=== PATIENT | female | born 1945 | race Caucasian/White ===

== ENCOUNTER 2019-05-04 15:11 | Emergency (ER) | payer MEDICARE, BC ==
[2019-05-04 15:57] VITALS: BP 185/108
--- NOTE | 2019-05-04 16:33 | EDM.PDOC ---
ED HPI GENERAL MEDICAL PROBLEM - General Chief Complaint: Lower Extremity Injury/Pain Stated Complaint: BLOOD CLOT IN RIGHT LEG Time Seen by Provider: 05/04/19 16:31 Source of Information: Reports: Patient History Limitations: Reports: No Limitations - History of Present Illness INITIAL COMMENTS - FREE TEXT/NARRATIVE: 74-year-old female presents for concerns she may have a blood clot in the right leg. She is appreciated lumps in the right leg. She states that one of them is painful. Areas of redness without warmth. She always has swelling which is recent lymphedema to the right leg. She denies any chest pain or shortness of breath. She is on a baby aspirin daily. No history of any blood clots. She denies any recent trauma to the leg. Treatments POLYMER TESTER: Reports: Other (see below) Other Treatments POLYMER TESTER: none Right Leg Pain Score (Numeric/FACES): 2 - Related Data Allergies Allergy/AdvReac Type Severity Reaction Status Date / Time No Known Allergies Allergy Verified 12/06/16 14:19 Home Meds: Home Meds Hydrochlorothiazide 12.5 mg PO DAILY 12/06/16 [History] Levothyroxine 150 mcg PO DAILY 12/06/16 [History] Losartan Potassium 100 mg PO DAILY 12/06/16 [History] Propranolol [Inderal LA] 60 mg PO DAILY 12/06/16 [History] [place]-3/DHA/Epa/Fish Oil [[place]-3 Fish Oil 1,200 MG Sfgl] 1,200 mg PO DAILY [History] metFORMIN [Glucophage XR] 500 mg PO BID 05/04/19 [History] Past Medical History HEENT History: Reports: Impaired Vision Cardiovascular History: Reports: Hypertension Endocrine/Metabolic History: Reports: Diabetes, Type II, Hypothyroidism Oncologic (Cancer) History: Reports: Breast Other Oncologic History: in remission for 18 years - Past Surgical History Musculoskeletal Surgical History: Reports: Knee Replacement Social & Family History - Caffeine Use Caffeine Use: Reports: Coffee, Soda Review of Systems - Review of Systems Review Of Systems: See Below Respiratory: Denies: Shortness of Breath Cardiovascular: Denies: Chest Pain Musculoskeletal: Reports: Leg Pain (lump to the right leg, surrounding erythema ; chronic swelling no worsen than normal) Skin: Denies: Wound ED EXAM, GENERAL - Physical Exam Exam: See Below Exam Limited By: No Limitations General Appearance: Alert, WD/WN, No Apparent Distress Respiratory/Chest: No Respiratory Distress Cardiovascular: Normal Peripheral Pulses, Regular Rate, Rhythm Peripheral Pulses: 2+: Posterior Tibial (R) Extremities: Other (swelling to the right lower leg; lump appreciated to the popliteal fossa; 2 other smalled cystic like lumps to the right anterior lower leg with overlying erythema, no increased warmth and only minor tenderness to palaption). No: Yu's Sign Neurological: Alert, Oriented, Normal Cognition Psychiatric: Normal Affect, Normal Mood Skin Exam: Warm, Dry, Normal Color Course - Vital Signs Last Recorded V/S: Last Vital Signs Temp 97.3 F 05/04/19 15:54 Pulse 91 05/04/19 15:54 Resp 20 05/04/19 15:54 BP 185/108 H 05/04/19 15:54 Pulse Ox 97 05/04/19 15:54 - Radiology Interpretation Free Text/Narrative:: Right lower extremity deep venous ultrasound: Duplex and color flow imaging was obtained of the right common femoral, proximal greater saphenous, superficial femoral, popliteal, posterior tibial and peroneal veins. Left common femoral vein was also evaluated. Findings: Normal phasic flow, augmentation and compression is seen. Fluid- filled structure is identified within the popliteal fossa with measurements of 7.4 x 1.7 x 3.9 cm which most likely represents popliteal cyst. No additional abnormality is seen. Impression: 1. Right popliteal cyst. 2. No evidence of deep venous thrombosis within the right lower extremity or left common femoral vein. - Re-Assessments/Exams Free Text/Narrative Re-Assessment/Exam: 05/04/19 18:50 I have reviewed the ultrasound results with the patient. Will discharge home at this time. Discharge instructions as documented. Departure - Departure Time of Disposition: 18:53 Disposition: Home, Self-Care 01 Condition: Good Clinical Impression: Popliteal cyst - Discharge Information *PRESCRIPTION DRUG MONITORING PROGRAM REVIEWED*: No *COPY OF PRESCRIPTION DRUG MONITORING REPORT IN PATIENT WALLACE: No Instructions: [facility]iroz Cyst Referrals: Elissa Landers NP [Primary Care Provider] - Forms: ED Department Discharge Additional Instructions: May take [id number] Tylenol or Motrin as needed for pain. Follow-up with your primary care provider as needed. Please return to the ER if your symptoms change or worsen.
--- NOTE | 2019-05-04 18:38 | US ---
Right lower extremity deep venous ultrasound: Duplex and color flow imaging was obtained of the right common femoral, proximal greater saphenous, superficial femoral, popliteal, posterior tibial and peroneal veins. Left common femoral vein was also evaluated. Findings: Normal phasic flow, augmentation and compression is seen. Fluid-filled structure is identified within the popliteal fossa with measurements of 7.4 x 1.7 x 3.9 cm which most likely represents popliteal cyst. No additional abnormality is seen. Impression: 1. Right popliteal cyst. 2. No evidence of deep venous thrombosis within the right lower extremity or left common femoral vein. Diagnostic code #2
== END 2019-05-04 19:03 | disposition home or self-care (01) ==
LOC: JD.ED 15:11
DX: M71.21 Synovial cyst of popliteal space [Baker], right knee (principal); I10 Essential (primary) hypertension; E11.9 Type 2 diabetes mellitus without complications; E03.9 Hypothyroidism, unspecified; Z79.84 Long term (current) use of oral hypoglycemic drugs; Z79.899 Other long term (current) drug therapy
CPT/HCPCS: 93971-26-RT; 93971-RT; 99283; 99283-25

== ENCOUNTER 2021-07-25 06:50 | Observation (INO) | payer MEDICARE, BC ==
[~2021-07-25 06:50] MED LIST: Acetaminophen 325 MG Tab PO SCH; Lidocaine 1%/Sod Bicarbonate in NS 8.4% 1 ML Syringe IDERM PRN; Pregabalin 25 MG Cap PO SCH; Sodium Chloride 0.9% 10 ML Syringe FLUSH PRN; oxyCODONE 5 MG Tab PO PRN; oxyCODONE ER 10 MG TAB.ER PO SCH
--- NOTE | 2021-07-25 07:16 | PCM.PREANE ---
Preanesthetic Assessment - Anesthesia/Transfusion/Family Hx Anesthesia History: Prior Anesthesia Without Reaction Family History of Anesthesia Reaction: No - Review of Systems General: No Symptoms, Other (history of breast ca, no bps on right arm) Pulmonary: No Symptoms Cardiovascular: Other (HTN) Gastrointestinal: No Symptoms Neurological: No Symptoms Other: Reports: Diabetes, Thyroid Problems - Physical Assessment NPO Status Date: 07/24/21 NPO Status Time: 21:00 Weight: 83.6 kg ASA Class: 2 Mental Status: Alert & Oriented x3 Airway Class: Mallampati = 2 Dentition: Reports: Normal Dentition Thyro-Mental Finger Breadths: 3 Mouth Opening Finger Breadths: 3 ROM/Head Extension: Full Lungs: Clear to Auscultation, Normal Respiratory Effort Cardiovascular: Regular Rate, Regular Rhythm - Imaging/EKG Impressions: ekg demonstrates nsr at 74 - Allergies Allergies/Adverse Reactions: Allergies Allergy/AdvReac Type Severity Reaction Status Date / Time No Known Allergies Allergy Verified 07/24/21 13:25 - Blood Blood Available: No Product(s) Available: None - Anesthesia Plan Pre-Op Medication Ordered: None - Acknowledgements Anesthesia Type Planned: Spinal Pt an Appropriate Candidate for the Planned Anesthesia: Yes Alternatives and Risks of Anesthesia Discussed w Pt/Guardian: Yes Pt/Guardian Understands and Agrees with Anesthesia Plan: Yes PreAnesthesia Questionnaire HEENT History: Reports: Cataract, Impaired Vision Cardiovascular History: Reports: Hypertension Respiratory History: Reports: None Genitourinary History: Reports: None PAINTER ORDNANCE History: Reports: None Musculoskeletal History: Reports: Osteoarthritis, Osteoporosis Neurological History: Reports: None Psychiatric History: Reports: None Endocrine/Metabolic History: Reports: Diabetes, Type II, Hypothyroidism Hematologic History: Reports: None Immunologic History: Reports: None Oncologic (Cancer) History: Reports: Breast Other Oncologic History: in remission for 18 years Dermatologic History: Reports: Other (See Below) Other Dermatologic History: ingrown toenails - Infectious Disease History Infectious Disease History: Reports: None - Past Surgical History Head Surgeries/Procedures: Reports: None HEENT Surgical History: Reports: Cataract Surgery Cardiovascular Surgical History: Reports: None Respiratory Surgical History: Reports: None GI Surgical History: Reports: None Female Surgical History: Reports: Tubal Ligation Male Surgical History: Reports: None Endocrine Surgical History: Reports: None Neurological Surgical History: Reports: None Musculoskeletal Surgical History: Reports: Knee Replacement Other Musculoskeletal Surgeries/Procedures:: LTKR 2010 Oncologic Surgical History: Reports: Mastectomy Other Oncologic Surgeries/Procedures: right mastectomy Dermatological Surgical History: Reports: None - SUBSTANCE USE Tobacco Use Status *Q: Former Tobacco User Recreational Drug Use History: No - HOME MEDS Home Medications: Home Meds Losartan Potassium 100 mg PO DAILY 12/06/16 [History] Propranolol [Inderal LA] 60 mg PO DAILY 12/06/16 [History] [place]-3/DHA/Epa/Fish Oil [[place]-3 Fish Oil 1,200 MG Sfgl] 1,200 mg PO DAILY 05/04/19 [History] Aspirin [Aspirin EC] 325 mg PO BID #60 tab 07/22/21 [Rx] oxyCODONE 5 - 10 mg PO Q4H PRN #40 tab 07/22/21 [Rx] Cholecalciferol (Vitamin D3) [Vitamin D3] 2,000 unit PO DAILY 07/24/21 [History] glipiZIDE [Glipizide ER] 10 mg PO BID 07/24/21 [History] hydroCHLOROthiazide [Hydrochlorothiazide] 12.5 mg PO DAILY 07/24/21 [History] metFORMIN HCl [Fortamet] 1,000 mg PO BID 07/24/21 [History] - CURRENT (IN HOUSE) MEDS Current Meds: Current Medications Acetaminophen (Acetaminophen 325 Mg Tab) 975 mg PO ONETIME LOPEZ Stop: 07/25/21 14:00 Morphine Sulfate 8 mg/Epinephrine HCl 0.3 mg/Cefuroxime Sodium 750 mg/Ketorolac Tromethamine 30 mg/Sodium Chloride 7.9 ml 0 mg .XX ASDIRECTED PRN PRN Reason: Pain Stop: 07/25/21 16:00 Lactated Ringer's (Ringers, Lactated) 1,000 mls @ 125 mls/hr IV ASDIRECTED LOPEZ Stop: 07/25/21 23:00 Lidocaine/Sodium Bicarbonate (Lidocaine 1%/Sod Bicarbonate In Ns 8.4% 1 Ml Syringe) 0.25 ml IDERM ONETIME PRN PRN Reason: Prior to IV Start Stop: 07/25/21 18:00 Oxycodone HCl (Oxycodone Er 10 Mg Tab.Er) 10 mg PO ONETIME LOPEZ Stop: 07/25/21 14:00 Oxycodone HCl (Oxycodone 5 Mg Tab) 5 - 10 mg PO Q4H PRN PRN Reason: Pain Stop: 07/25/21 16:00 Pregabalin (Pregabalin 25 Mg Cap) 50 mg PO ONETIME LOPEZ Stop: 07/25/21 14:00 Sodium Chloride (Sodium Chloride 0.9% 10 Ml Syringe) 10 ml FLUSH ASDIRECTED PRN PRN Reason: Keep Vein Open Stop: 07/25/21 18:00 Discontinued Medications Tranexamic Acid (Tranexamic Acid 1,000 Mg/10 Ml Amp) Confirm Administered Dose 1,000 mg .ROUTE .STK-MED ONE Stop: 07/25/21 07:05 Vancomycin HCl (Vancomycin 1 Gm Sdv) Confirm Administered Dose 1 gm .ROUTE .STK- MED ONE Stop: 07/25/21 07:05
[2021-07-25] MEDS ORDERED: Propofol 200 MG/20 ML SDV ONE (07:26)
[2021-07-25] MEDS ORDERED: ceFAZolin 1 GM Vial ONE (07:26)
[2021-07-25] MEDS ORDERED: Midazolam 1 MG/ML 2 ML SDV ONE (07:26)
[2021-07-25] MEDS ORDERED: Lactated Ringers 1,000 ML ONE (07:26)
[2021-07-25] MEDS ORDERED: EPINEPHrine 1 MG/ML SDV ONE (07:32)
[2021-07-25] MEDS ORDERED: Ropivacaine 0.5% 5 MG/ML 30 ML SDV ONE (07:33)
[2021-07-25] MEDS: Morphine 8 MG, EPINEPHrine 0.3 MG, Cefuroxime 750 MG, Ketorolac 30 MG, Sodium Chloride ... PRN ×10 (09:12→09:20)
[2021-07-25] MEDS: Vancomycin 1 GM SDV ONE ×2 (09:12→09:32)
[2021-07-25] MEDS ORDERED: HYDROmorphone 0.5 MG/0.5 ML Syringe IVPUSH PRN (09:19)
[2021-07-25] MEDS ORDERED: Ondansetron 4 MG/2 ML SDV IVPUSH PRN ×2 (09:19→14:43)
[2021-07-25] MEDS ORDERED: fentaNYL 100 MCG/2 ML SDV IVPUSH PRN (09:19)
[2021-07-25] MEDS: Lactated Ringers 1,000 ML IV SCH ×2 (09:24→17:32)
--- NOTE | 2021-07-25 10:25 | PCM.POSTAN ---
POST ANESTHESIA ASSESSMENT - MENTAL STATUS Mental Status: Alert, Oriented - VITAL SIGNS Vital Signs: Last Vital Signs Temp 36.6 C 07/25/21 10:10 Pulse 64 07/25/21 10:10 Resp 20 07/25/21 10:10 BP 159/83 H 07/25/21 10:10 Pulse Ox 93 L 07/25/21 10:10 - RESPIRATORY Respiratory Status: Respiratory Rate WNL, Airway Patent, O2 Saturation Stable, Supplemental Oxygen - CARDIOVASCULAR CV Status: Pulse Rate WNL, Blood Pressure Stable - GASTROINTESTINAL GI Status: No Symptoms - PAIN Pain Score: 3 - POST OP HYDRATION Hydration Status: Adequate & Stable
--- NOTE | 2021-07-25 10:29 | PCM.SN.2 ---
- Free Text/Narrative Note: Right selective femoral nerve block at the adductor canal for post-procedure pain control under US guidance requested by Dr. Hsieh. Time Out: 1012 Start: 1012 End: 1017 Chart reviewed. Consent signed. Questions answered. Appropriate monitors applied. Time out performed. right mid-shaft femur identified with ultrasound, scanning medially of femur, the femoral artery in the adductor canal visualized, and the femoral nerve located laterally to the artery. The skin was prepped lateral to the ultrasound probe with chlorahexadine times 3. The 20ga 4 insulated block needle was inserted under direct ultrasound guidance into the adductor canal. 25mL of 0.5% ropivacaine with 1:200,000 epinephrine was injected circumferentially around the nerve with intermittent negative aspiration noted. Patient tolerated the procedure well. Sterile technique noted along with sterile gloves, mask, and sterile probe cover. See picture on progress note and vital signs on nurses notes. Block completed in PACU. Roz Bose CRNA
[2021-07-25] MEDS: oxyCODONE 5 MG Tab PO PRN ×3 (10:56→21:14)
--- NOTE | 2021-07-25 11:10 | CR ---
Right knee: AP and crosstable lateral views of the right knee were obtained. Comparison: Prior right knee CT study of 07/08/21. Knee prosthesis is seen. Components are aligned. Underlying bony structures show nothing else acute. Prosthetic component is also seen within the patella. Soft tissue air is noted. Impression: 1. Satisfactory postop radiographic appearance of recently placed right knee prostheses. Diagnostic code #2
--- NOTE | 2021-07-25 11:31 | PCM48HPAN ---
Post Anesthesia Note - EVALUATION WITHIN 48HRS OF ANESTHETIC Vital Signs in Normal Range: Yes Patient Participated in Evaluation: Yes Respiratory Function Stable: Yes Airway Patent: Yes Cardiovascular Function Stable: Yes Hydration Status Stable: Yes Pain Control Satisfactory: Yes Nausea and Vomiting Control Satisfactory: Yes Mental Status Recovered: Yes Vital Signs: Last Vital Signs Temp 36.6 C 07/25/21 10:59 Pulse 61 07/25/21 10:59 Resp 20 07/25/21 10:59 BP 166/81 H 07/25/21 10:59 Pulse Ox 94 L 07/25/21 10:59
[2021-07-25] MEDS ORDERED: Diltiazem 50 MG/10 ML SDV IVPUSH ONE (14:42)
[2021-07-25] MEDS ORDERED: oxyCODONE 5 MG Tab PO PRN (14:42)
[2021-07-25] MEDS ORDERED: Sennosides 8.6 MG Tab PO PRN (14:43)
[2021-07-25] MEDS ORDERED: Magnesium Hydroxide 400 MG/5 ML Susp 30 ML Cup PO PRN (14:43)
[2021-07-25] MEDS ORDERED: Bisacodyl 5 MG Tab PO PRN (14:43)
--- NOTE | 2021-07-25 14:45 | PCM.CONS ---
<Jeff Martin - Last Filed: 07/25/21 15:44> H&P History of Present Illness - General Date of Service: 07/25/21 Source of Information: Patient, Old Records, Provider, RN, RN Notes Reviewed History Limitations: Reports: No Limitations - History of Present Illness Initial Comments - Free Text/Narative: This is a 76-year-old female who earlier today underwent robotic assisted right TKA with Dr. Hsieh, orthopedic surgeon. Postoperatively patient was doing okay, although she was noting some nausea with mild vomiting. She did work with PT and OT and afterwards was noted to have an irregular heart rate. Telemetry was applied and she was noted to have atrial fibrillation at a rate of 88-120. This was confirmed with twelve-lead EKG. Patient denies any known history of atrial fibrillation however she does state that she has had similar feelings of palpitations in the past. She is on levothyroxine and we will recheck her TSH to ensure this is not affecting this. We will check a CBC and a CMP as well. Echocardiogram will be obtained. She will be admitted to the floor overnight observation status for continuous monitoring on telemetry. We will start her on Eliquis 5 mg twice daily for stroke prophylaxis. Will order 20 mg IV push Cardizem now and see if we can get her to convert. She carries a history of hypothyroidism, HTN, type II DM, breast cancer with right-sided mastectomy. Hospital medicine has been consulted to review patient's home meds and provide intervention and further work-up for patient's new onset A. fib. Right Knee Pain Score (Numeric/FACES): 1 - Related Data Allergies/Adverse Reactions: Allergies Allergy/AdvReac Type Severity Reaction Status Date / Time No Known Allergies Allergy Verified 07/25/21 09:25 Home Medications: Home Meds Losartan Potassium 100 mg PO DAILY 12/06/16 [History] Propranolol [Inderal LA] 60 mg PO DAILY 12/06/16 [History] [place]-3/DHA/Epa/Fish Oil [[place]-3 Fish Oil 1,200 MG Sfgl] 1,200 mg PO DAILY 05/04/19 [History] Aspirin [Aspirin EC] 325 mg PO BID #60 tab 07/22/21 [Rx] oxyCODONE 5 - 10 mg PO Q4H PRN #40 tab 07/22/21 [Rx] Cholecalciferol (Vitamin D3) [Vitamin D3] 2,000 unit PO DAILY 07/24/21 [History] glipiZIDE [Glipizide ER] 10 mg PO BID 07/24/21 [History] hydroCHLOROthiazide [Hydrochlorothiazide] 12.5 mg PO DAILY 07/24/21 [History] metFORMIN HCl [Fortamet] 1,000 mg PO BID 07/24/21 [History] Levothyroxine 175 mcg PO DAILY 07/25/21 [History] Past Medical History HEENT History: Reports: Cataract, Impaired Vision Cardiovascular History: Reports: Hypertension Respiratory History: Reports: None Genitourinary History: Reports: None [employer]OR History: Reports: None Musculoskeletal History: Reports: Osteoarthritis, Osteoporosis Neurological History: Reports: None Psychiatric History: Reports: None Endocrine/Metabolic History: Reports: Diabetes, Type II, Hypothyroidism Hematologic History: Reports: None Immunologic History: Reports: None Oncologic (Cancer) History: Reports: Breast Other Oncologic History: in remission for 18 years Dermatologic History: Reports: Other (See Below) Other Dermatologic History: ingrown toenails - Infectious Disease History Infectious Disease History: Reports: None - Past Surgical History Head Surgeries/Procedures: Reports: None HEENT Surgical History: Reports: Cataract Surgery Cardiovascular Surgical History: Reports: None Respiratory Surgical History: Reports: None GI Surgical History: Reports: None Female Surgical History: Reports: Tubal Ligation Male Surgical History: Reports: None Endocrine Surgical History: Reports: None Neurological Surgical History: Reports: None Musculoskeletal Surgical History: Reports: Knee Replacement Other Musculoskeletal Surgeries/Procedures:: LTKR 2010 Oncologic Surgical History: Reports: Mastectomy Other Oncologic Surgeries/Procedures: right mastectomy Dermatological Surgical History: Reports: None Social & Family History - Family History Cardiac: Reports: Blood Clots/VTE/DVT - Tobacco Use Tobacco Use Status *Q: Former Tobacco User Used Tobacco, but Quit: Yes Month/Year Tobacco Last Used: 1999 - Caffeine Use Caffeine Use: Reports: Coffee, Soda - Recreational Drug Use Recreational Drug Use: No Drug Use in Last 12 Months: No H&P Review of Systems - Review of Systems: Review Of Systems: See Below General: Reports: No Symptoms. Denies: Fever, Chills, Malaise, Weakness, Fatigue HEENT: Reports: No Symptoms. Denies: Headaches, Sore Throat Pulmonary: Reports: No Symptoms. Denies: Shortness of Breath, Wheezing, Cough, Sputum Cardiovascular: Reports: Palpitations. Denies: Chest Pain, Dyspnea on Exertion, Edema Gastrointestinal: Reports: No Symptoms. Denies: Abdominal Pain, Constipation, Diarrhea, Nausea, Vomiting Genitourinary: Reports: No Symptoms. Denies: Pain Musculoskeletal: Reports: Leg Pain Skin: Reports: No Symptoms. Denies: Cyanosis Psychiatric: Reports: No Symptoms. Denies: Confusion Neurological: Reports: No Symptoms, Difficulty Walking, Gait Disturbance. Denies: Confusion, Headache, Numbness, Pre-Existing Deficit, Syncope, Tingling, Trouble Speaking, Change in Speech Hematologic/Lymphatic: Reports: No Symptoms Immunologic: Reports: No Symptoms Exam - Exam Exam: See Below - Vital Signs Vital Signs: Last Vital Signs Temp 97.9 F 07/25/21 10:59 Pulse 61 07/25/21 10:59 Resp 20 07/25/21 10:59 BP 166/81 H 07/25/21 10:59 Pulse Ox 94 L 07/25/21 10:59 Weight: 184 lb - Exam Quality Assessment: Supplemental Oxygen (2L), DVT Prophylaxis. No: Urinary Catheter General: Alert, Oriented, Cooperative. No: Mild Distress HEENT: Conjunctiva Clear, EACs Clear, Mucosa Moist & [place], Posterior Pharynx Clear Neck: Supple, Trachea Midline Lungs: Clear to Auscultation, Normal Respiratory Effort Cardiovascular: Regular Rate, Irregular Rhythm GI/Abdominal Exam: Normal Bowel Sounds, Soft, Non-Tender, No Distention (Female) Exam: Deferred Rectal (Female) Exam: Deferred Back Exam: Normal Inspection, Full Range of Motion Extremities: Normal Capillary Refill, Leg Pain (right ), Limited Range of Motion, Other (Bandage in place on right knee. Bandages dry and intact. Cooling pack in place.) Peripheral Pulses: 2+: Radial (L), Radial (R), Dorsalis Pedis (L), Dorsalis Pedis (R) Skin: Warm, Dry, Intact Neurological: Cranial Nerves Intact (Grossly) Neuro Extensive - Mental Status: Alert, Oriented x3, Normal Mood/Affect - Patient Data Lab Results Last 24 hrs: Laboratory Results - last 24 hr 07/25/21 07/25/21 Range/Units 07:05 13:52 POC Glucose 161 H 233 H (70-99) mg/dL Sepsis Event Note - Evaluation Sepsis Screening Result: No Definite Risk - Focused Exam Vital Signs: Vital Signs Temp Temp Pulse Resp BP Pulse Ox Pulse Ox 07/25/21 10:59 97.9 F 61 20 166/81 H 94 L 07/25/21 10:30 58 L 16 177/69 H 94 L 07/25/21 10:20 55 L 17 167/81 H 93 L 07/25/21 10:15 90 L 07/25/21 10:10 97.9 F 64 20 159/83 H 93 L 07/25/21 09:59 97.9 F 64 18 157/82 H 93 L 07/25/21 07:30 97.2 F 07/25/21 07:20 97.2 F 70 18 182/90 H 95 Consult PN Assessment/Plan POD#: 0 Procedures: Procedures CT LOWER EXTREMITY W/O DYE (07/08/21) EMERGENCY DEPT VISIT (05/04/19) EMERGENCY DEPT VISIT (12/06/16) EXTREMITY STUDY (05/04/19) MR-STAPH DNA AMP PROBE (07/08/21) X-RAY EXAM UNILAT RIBS/CHEST (12/06/16) (1) S/P total knee arthroplasty SNOMED Code(s): 4348789322481, 685740338, 9034884341670 Code(s): Z96.659 - PRESENCE OF UNSPECIFIED ARTIFICIAL KNEE JOINT Priority: High Current Visit: Yes Qualifiers: Laterality: right Qualified Code(s): Z96.651 - Presence of right artificial knee joint (2) Osteoarthritis SNOMED Code(s): 096824609 Code(s): M19.90 - UNSPECIFIED OSTEOARTHRITIS, UNSPECIFIED SITE Priority: High Current Visit: Yes Qualifiers: Osteoarthritis location: knee Osteoarthritis type: primary Laterality: right Qualified Code(s): M17.11 - Unilateral primary osteoarthritis, right knee (3) Hypothyroidism SNOMED Code(s): 25982903 Code(s): E03.9 - HYPOTHYROIDISM, UNSPECIFIED Priority: Medium Current Visit: No Qualifiers: Hypothyroidism type: unspecified Qualified Code(s): E03.9 - Hypothyroidism, unspecified (4) HTN (hypertension) SNOMED Code(s): 12371510 Code(s): I10 - ESSENTIAL (PRIMARY) HYPERTENSION Priority: Medium Current Visit: No Qualifiers: Hypertension type: unspecified Qualified Code(s): I10 - Essential (primary) hypertension (5) New onset a-fib SNOMED Code(s): 94408997 Code(s): I48.91 - UNSPECIFIED ATRIAL FIBRILLATION Priority: High Current Visit: Yes (6) Type 2 diabetes mellitus SNOMED Code(s): 05498631 Code(s): E11.9 - TYPE 2 DIABETES MELLITUS WITHOUT COMPLICATIONS Priority: Medium Current Visit: Yes Qualifiers: Diabetes mellitus terminal clerk insulin use: without half-way use Diabetes mellitus complication status: with other specified complication Qualified Code(s): E11.69 - Type 2 diabetes mellitus with other specified complication (7) History of breast cancer SNOMED Code(s): 309713995 Code(s): Z85.3 - PERSONAL HISTORY OF MALIGNANT NEOPLASM OF BREAST Priority: Low Current Visit: No (8) History of right mastectomy SNOMED Code(s): 206859401, 180941926 Code(s): Z90.11 - ACQUIRED ABSENCE OF RIGHT BREAST AND NIPPLE Priority: Low Current Visit: No Problem List Initiated/Reviewed/Updated: Yes My Orders Last 24 Hours: My Active Orders 07/25/21 14:42 Diltiazem [Cardizem] 20 mg IVPUSH ONETIME ONE 07/25/21 14:43 Telemetry Monitoring [Cardiac Monitoring] [RC] . DIRECTED 07/25/21 14:45 Metoprolol Tartrate [Lopressor] 25 mg PO Q12H Plan: S/P total knee arthroplasty Osteoarthritis * Management per primary team * PT/OT * Pain management per primary team * Switch DVT prophylaxis to Eliquis as new onset A. fib Hypothyroidism * Check TSH * Continue home levothyroxine HTN (hypertension) * Home BP meds as ordered * Monitor vital signs * No acute concerns New onset a-fib * Cardizem 20 mg IV push bolus now * Continue home propranolol * Consider starting diltiazem * Telemetry * 5 mg twice daily Eliquis as above * Echocardiogram ordered * Check CBC, CMP Type 2 diabetes mellitus * Hold home p.o. diabetes medications * 4 times daily before meals and bedtime blood glucose checks * Diabetic diet * Medium dose sliding scale insulin History of breast cancer History of right mastectomy * No acute concerns * No blood pressures on right arm Code status: Full Code PCP: Suzanna Santacruz NP DVT prophylaxis: Eliquis as above Thank you for allowing us to participate in the care of this patient!! Requesting Provider: Dr. Hsieh Date Consult Requested: 07/25/21 Reason for Consult: New onset A-fib Patient History Reviewed: Yes Admission H&P Reviewed: Yes Notified Requestor: Yes <Brock Membreno - Last Filed: 07/25/21 17:09> H&P History of Present Illness - General Admit Problem/Dx: Admission Diagnosis/Problem Admission Diagnosis/Problem Atrial fibrillation Exam - Vital Signs Vital Signs: Last Vital Signs Temp 97.9 F 07/25/21 10:59 Pulse 61 07/25/21 10:59 Resp 20 07/25/21 10:59 BP 166/81 H 07/25/21 10:59 Pulse Ox 94 L 07/25/21 10:59 - Patient Data Lab Results Last 24 hrs: Laboratory Results - last 24 hr 07/25/21 07/25/21 Range/Units 07:05 13:52 POC Glucose 161 H 233 H (70-99) mg/dL Sepsis Event Note - Focused Exam Vital Signs: Vital Signs Temp Temp Pulse Resp BP Pulse Ox Pulse Ox 07/25/21 10:59 97.9 F 61 20 166/81 H 94 L 07/25/21 10:30 58 L 16 177/69 H 94 L 07/25/21 10:20 55 L 17 167/81 H 93 L 07/25/21 10:15 90 L 07/25/21 10:10 97.9 F 64 20 159/83 H 93 L 07/25/21 09:59 97.9 F 64 18 157/82 H 93 L 07/25/21 07:30 97.2 F 07/25/21 07:20 97.2 F 70 18 182/90 H 95 Consult PN Assessment/Plan Procedures: Procedures CT LOWER EXTREMITY W/O DYE (07/08/21) EMERGENCY DEPT VISIT (05/04/19) EMERGENCY DEPT VISIT (12/06/16) EXTREMITY STUDY (05/04/19) MR-STAPH DNA AMP PROBE (07/08/21) X-RAY EXAM UNILAT RIBS/CHEST (12/06/16) Plan: I agree with the above assessment and plan. Pt will need a DOAC and a 2 DECHO Check a TSH level and probably reduce the synthroid dose to keep a TSH between 1-2.
[2021-07-25] MEDS ORDERED: Metoprolol Tartrate 25 MG Tab PO SCH (15:00)
[2021-07-25] MEDS: Insulin Lispro 100 UNIT/ML 10 ML Vial SUBCUT SCH ×2 (17:33→21:13)
--- NOTE | 2021-07-25 18:41 | PCM.EKG ---
#1 Interpretation EKG Date: 07/25/21 Time: 13:56 Rhythm: A-Fib (With rate of 54 240 bpm.) Rate (Beats/Min): 98 (Occasional PVCs) Gill: LAD-Left Gill Deviation (-18 degrees) P-Wave: Absent QRS: Other (Decreased voltage precordial leads left ventricular hypertrophy pattern nuclear near Q-wave in leads III and aVF consider old inferior wall myocardial infarction) ST-T: Normal QT: Prolonged (Mildly prolonged) EKG Interpretation Comments: Abnormal ECG
[2021-07-25] MEDS: Docusate Sodium 100 MG Cap PO SCH (21:13)
[2021-07-25] MEDS: ceFAZolin 2 GM in Premix Bag 1 BAG IV SCH (21:13)
[2021-07-26] MEDS: ceFAZolin 2 GM in Premix Bag 1 BAG IV SCH ×2 (02:51→11:04)
[2021-07-26] MEDS: oxyCODONE 5 MG Tab PO PRN ×3 (02:53→11:01)
[2021-07-26] MEDS: Insulin Lispro 100 UNIT/ML 10 ML Vial SUBCUT SCH ×2 (06:09→11:03)
[2021-07-26] MEDS ORDERED: Levothyroxine 100 MCG Tab PO SCH (07:00)
[2021-07-26] MEDS ORDERED: Levothyroxine 75 MCG Tab PO SCH (07:00)
--- NOTE | 2021-07-26 07:15 | PCM.CONSN ---
- General Info Date of Service: 07/26/21 Admission Dx/Problem (Free Text): Admission Diagnosis/Problem Admission Diagnosis/Problem Atrial fibrillation Functional Status: Reports: Pain Controlled (for the most part ), Tolerating Diet, Ambulating, Urinating, Incentive Spirometry. Denies: New Symptoms - Review of Systems General: Reports: No Symptoms. Denies: Fever, Chills HEENT: Reports: No Symptoms. Denies: Headaches, Sore Throat Pulmonary: Reports: No Symptoms. Denies: Shortness of Breath, Cough, Sputum, Wheezing Cardiovascular: Reports: Edema (Chronic right-sided lymphedema). Denies: Chest Pain, Palpitations, Dyspnea on Exertion Gastrointestinal: Reports: No Symptoms. Denies: Abdominal Pain, Constipation, Diarrhea, Nausea, Vomiting Genitourinary: Reports: No Symptoms Musculoskeletal: Reports: No Symptoms Skin: Reports: No Symptoms. Denies: Cyanosis Neurological: Reports: Difficulty Walking, Weakness, Gait Disturbance. Denies: Confusion, Numbness, Pre-Existing Deficit, Tingling Psychiatric: Reports: No Symptoms - Patient Data Vitals - Most Recent: Last Vital Signs Temp 97.9 F 07/26/21 04:11 Pulse 74 07/26/21 04:11 Resp 18 07/26/21 04:11 BP 135/93 H 07/26/21 04:11 Pulse Ox 91 L 07/26/21 04:11 Weight - Most Recent: 197 lb 3.2 oz I&O - Last 24 Hours: Intake & Output 07/25/21 07/26/21 07/26/21 22:59 06:59 14:59 Intake Total 1150 Output Total 800 Balance 350 Lab Results Last 24 Hours: Laboratory Results - last 24 hr 07/25/21 07/25/21 07/25/21 Range/Units 13:52 17:21 20:14 WBC (3.98-10.04) K/mm3 RBC (3.98-5.22) M/mm3 Hgb (11.2-15.7) gm/dl Hct (34.1-44.9) % MCV (79.4-94.8) fl MCH (25.6-32.2) pg MCHC (32.2-35.5) g/dl RDW Std Deviation (36.4-46.3) fL Plt Count (182-369) K/mm3 MPV (9.4-12.3) fl Neut % (Auto) (34.0-71.1) % Lymph % (Auto) (19.3-51.7) % [place] % (Auto) (4.7-12.5) % Eos % (Auto) (0.7-5.8) Baso % (Auto) (0.1-1.2) % Neut # (Auto) (1.56-6.13) K/mm3 Lymph # (Auto) (1.18-3.74) K/mm3 [place] # (Auto) (0.24-0.36) K/mm3 Eos # (Auto) (0.04-0.36) K/mm3 Baso # (Auto) (0.01-0.08) K/mm3 Sodium (136-145) mEq/L Potassium (3.5-5.1) mEq/L Chloride (98-107) mEq/L Carbon Dioxide (21-32) mEq/L Anion Gap (5-15) BUN (7-18) mg/dL Creatinine (0.55-1.02) mg/dL Est Cr Clr Drug Dosing mL/min Estimated GFR (MDRD) (>60) mL/min BUN/Creatinine Ratio (14-18) Glucose (70-99) mg/dL POC Glucose 233 H 220 H (70-99) mg/dL Calcium (8.5-10.1) mg/dL Total Bilirubin (0.2-1.0) mg/dL AST (15-37) U/L ALT (14-59) U/L Alkaline Phosphatase (46-116) U/L Total Protein (6.4-8.2) g/dl Albumin (3.4-5.0) g/dl Globulin gm/dL Albumin/Globulin Ratio (1-2) TSH 3rd Generation 0.203 L (0.358-3.74) uIU/mL 07/25/21 07/25/21 07/25/21 Range/Units 20:14 20:14 21:05 WBC 18.29 H (3.98-10.04) K/mm3 RBC 4.68 (3.98-5.22) M/mm3 Hgb 13.1 (11.2-15.7) gm/dl Hct 40.7 (34.1-44.9) % MCV 87.0 (79.4-94.8) fl MCH 28.0 (25.6-32.2) pg MCHC 32.2 (32.2-35.5) g/dl RDW Std Deviation 42.5 (36.4-46.3) fL Plt Count 296 (182-369) K/mm3 MPV 9.7 (9.4-12.3) fl Neut % (Auto) 87.3 H (34.0-71.1) % Lymph % (Auto) 6.7 L (19.3-51.7) % [place] % (Auto) 5.6 (4.7-12.5) % Eos % (Auto) 0 L (0.7-5.8) Baso % (Auto) 0.1 (0.1-1.2) % Neut # (Auto) 15.98 H (1.56-6.13) K/mm3 Lymph # (Auto) 1.22 (1.18-3.74) K/mm3 [place] # (Auto) 1.02 H (0.24-0.36) K/mm3 Eos # (Auto) 0.00 L (0.04-0.36) K/mm3 Baso # (Auto) 0.02 (0.01-0.08) K/mm3 Sodium 134 L (136-145) mEq/L Potassium 4.0 (3.5-5.1) mEq/L Chloride 98 (98-107) mEq/L Carbon Dioxide 29 (21-32) mEq/L Anion Gap 11.0 (5-15) BUN 21 H (7-18) mg/dL Creatinine 0.9 (0.55-1.02) mg/dL Est Cr Clr Drug Dosing 47.10 mL/min Estimated GFR (MDRD) > 60 (>60) mL/min BUN/Creatinine Ratio 23.3 H (14-18) Glucose 226 H (70-99) mg/dL POC Glucose 206 H (70-99) mg/dL Calcium 8.8 (8.5-10.1) mg/dL Total Bilirubin 1.5 H (0.2-1.0) mg/dL AST 23 (15-37) U/L ALT 26 (14-59) U/L Alkaline Phosphatase 58 (46-116) U/L Total Protein 7.5 (6.4-8.2) g/dl Albumin 3.3 L (3.4-5.0) g/dl Globulin 4.2 gm/dL Albumin/Globulin Ratio 0.8 L (1-2) TSH 3rd Generation (0.358-3.74) uIU/mL 07/26/21 Range/Units 06:09 WBC (3.98-10.04) K/mm3 RBC (3.98-5.22) M/mm3 Hgb (11.2-15.7) gm/dl Hct (34.1-44.9) % MCV (79.4-94.8) fl MCH (25.6-32.2) pg MCHC (32.2-35.5) g/dl RDW Std Deviation (36.4-46.3) fL Plt Count (182-369) K/mm3 MPV (9.4-12.3) fl Neut % (Auto) (34.0-71.1) % Lymph % (Auto) (19.3-51.7) % [place] % (Auto) (4.7-12.5) % Eos % (Auto) (0.7-5.8) Baso % (Auto) (0.1-1.2) % Neut # (Auto) (1.56-6.13) K/mm3 Lymph # (Auto) (1.18-3.74) K/mm3 [place] # (Auto) (0.24-0.36) K/mm3 Eos # (Auto) (0.04-0.36) K/mm3 Baso # (Auto) (0.01-0.08) K/mm3 Sodium (136-145) mEq/L Potassium (3.5-5.1) mEq/L Chloride (98-107) mEq/L Carbon Dioxide (21-32) mEq/L Anion Gap (5-15) BUN (7-18) mg/dL Creatinine (0.55-1.02) mg/dL Est Cr Clr Drug Dosing mL/min Estimated GFR (MDRD) (>60) mL/min BUN/Creatinine Ratio (14-18) Glucose (70-99) mg/dL POC Glucose 147 H (70-99) mg/dL Calcium (8.5-10.1) mg/dL Total Bilirubin (0.2-1.0) mg/dL AST (15-37) U/L ALT (14-59) U/L Alkaline Phosphatase (46-116) U/L Total Protein (6.4-8.2) g/dl Albumin (3.4-5.0) g/dl Globulin gm/dL Albumin/Globulin Ratio (1-2) TSH 3rd Generation (0.358-3.74) uIU/mL Med Orders - Current: Current Medications Apixaban (Apixaban 5 Mg Tab) 5 mg PO BID [facility] Bisacodyl (Bisacodyl 5 Mg Tab) 5 mg PO DAILY PRN PRN Reason: Constipation Cholecalciferol (Cholecalciferol (Vitamin D3) 25 Mcg Tab) 50 mcg PO DAILY [facility] Docusate Sodium (Docusate Sodium 100 Mg Cap) 100 mg PO BID [facility] Last Admin: 07/25/21 21:13 Dose: 100 mg Documented by: Cefazolin Sodium/Dextrose 2 gm (/ Premix) 50 mls @ 100 mls/hr IV Q8H [facility] Stop: 07/26/21 11:29 Last Admin: 07/26/21 02:51 Dose: 100 mls/hr Documented by: Insulin Human Lispro (Insulin Lispro 100 Unit/Ml 10 Ml Vial) 0 unit SUBCUT QIDACANDBED [facility]; Protocol Last Admin: 07/26/21 06:09 Dose: Not Given Documented by: Levothyroxine Sodium (Levothyroxine 100 Mcg Tab) 100 mcg PO DAILY@0700 [facility] Last Admin: 07/26/21 06:10 Dose: 100 mcg Documented by: Levothyroxine Sodium (Levothyroxine 75 Mcg Tab) 75 mcg PO DAILY@0700 [facility] Last Admin: 07/26/21 06:10 Dose: 75 mcg Documented by: Losartan Potassium (Losartan 100 Mg Tab) 100 mg PO DAILY [facility] Magnesium Hydroxide (Magnesium Hydroxide 400 Mg/5 Ml Susp 30 Ml Cup) 30 ml PO BID PRN PRN Reason: Constipation Ondansetron HCl (Ondansetron 4 Mg/2 Ml Sdv) 4 mg IVPUSH Q6H PRN PRN Reason: Nausea/Vomiting Oxycodone HCl (Oxycodone 5 Mg Tab) 5 - 10 mg PO Q4H PRN PRN Reason: Pain (moderate 4-6) Last Admin: 07/26/21 02:53 Dose: 5 mg Documented by: Senna (Sennosides 8.6 Mg Tab) 8.6 mg PO BID PRN PRN Reason: Constipation Discontinued Medications Acetaminophen (Acetaminophen 325 Mg Tab) 975 mg PO ONETIME [facility] Stop: 07/25/21 14:00 Last Admin: 07/25/21 07:30 Dose: 975 mg Documented by: Aspirin (Aspirin 325 Mg Tab.Ec) 325 mg PO BID [facility] Cefazolin Sodium (Cefazolin 1 Gm Vial) Confirm Administered Dose 2 gm .ROUTE .STK-MED ONE Stop: 07/25/21 07:27 Morphine Sulfate 8 mg/Epinephrine HCl 0.3 mg/Cefuroxime Sodium 750 mg/Ketorolac Tromethamine 30 mg/Sodium Chloride 7.9 ml 0 mg .XX ASDIRECTED PRN PRN Reason: Pain Stop: 07/25/21 16:00 Last Admin: 07/25/21 09:20 Dose: 788.3 mg Documented by: Diltiazem HCl (Diltiazem 50 Mg/10 Ml Sdv) 20 mg IVPUSH ONETIME ONE Stop: 07/25/21 14:43 Last Admin: 07/25/21 15:00 Dose: 20 mg Documented by: Epinephrine HCl (Epinephrine 1 Mg/Ml Sdv) Confirm Administered Dose 1 mg .ROUTE .STK-MED ONE Stop: 07/25/21 07:33 Fentanyl (Fentanyl 100 Mcg/2 Ml Sdv) 50 mcg IVPUSH Q5M PRN PRN Reason: Pain Stop: 07/25/21 18:00 Last Admin: 07/25/21 10:38 Dose: 50 mcg Documented by: Hydromorphone HCl (Hydromorphone 0.5 Mg/0.5 Ml Syringe) 0.5 mg IVPUSH Q10M PRN PRN Reason: Pain (severe 7-10) Stop: 07/25/21 18:00 Lactated Ringer's (Ringers, Lactated) 1,000 mls @ 125 mls/hr IV ASDIRECTED [facility] Stop: 07/25/21 23:00 Last Admin: 07/25/21 17:32 Dose: 125 mls/hr Documented by: Lactated Ringer's (Ringers, Lactated) Confirm Administered Dose 1,000 mls @ as directed .ROUTE .STK-MED ONE Stop: 07/25/21 07:27 Lidocaine HCl (Lidocaine 1% 5 Ml Sdv) Confirm Administered Dose 5 ml .ROUTE .STK-MED ONE Stop: 07/25/21 08:10 Lidocaine/Sodium Bicarbonate (Lidocaine 1%/Sod Bicarbonate In Ns 8.4% 1 Ml Syringe) 0.25 ml IDERM ONETIME PRN PRN Reason: Prior to IV Start Stop: 07/25/21 18:00 Metoprolol Tartrate (Metoprolol Tartrate 25 Mg Tab) 25 mg PO Q12H [facility] Last Admin: 07/25/21 17:38 Dose: Not Given Documented by: Midazolam HCl (Midazolam 1 Mg/Ml 2 Ml Sdv) Confirm Administered Dose 2 mg .ROUTE .STK-MED ONE Stop: 07/25/21 07:27 Miscellaneous Medication (Phenylephrine Hcl In 0.9% Nacl 1 Mg/10 Ml Syringe) Confirm Administered Dose 0 mg .ROUTE .STK-MED ONE Stop: 07/25/21 08:40 Ondansetron HCl (Ondansetron 4 Mg/2 Ml Sdv) 4 mg IVPUSH ONETIME PRN PRN Reason: Nausea/Vomiting Stop: 07/25/21 18:00 Last Admin: 07/25/21 10:36 Dose: 4 mg Documented by: Oxycodone HCl (Oxycodone Er 10 Mg Tab.Er) 10 mg PO ONETIME [facility] Stop: 07/25/21 14:00 Last Admin: 07/25/21 07:30 Dose: 10 mg Documented by: Oxycodone HCl (Oxycodone 5 Mg Tab) 5 - 10 mg PO Q4H PRN PRN Reason: Pain Stop: 07/25/21 16:00 Oxycodone HCl (Oxycodone 5 Mg Tab) 5 - 10 mg PO Q4H PRN PRN Reason: Pain Stop: 07/25/21 23:00 Last Admin: 07/25/21 15:25 Dose: 10 mg Documented by: Oxycodone HCl (Oxycodone 5 Mg Tab) 5 - 10 mg PO Q4H PRN PRN Reason: Pain Pregabalin (Pregabalin 25 Mg Cap) 50 mg PO ONETIME [facility] Stop: 07/25/21 14:00 Last Admin: 07/25/21 07:29 Dose: 50 mg Documented by: Propofol (Propofol 200 Mg/20 Ml Sdv) Confirm Administered Dose 400 mg .ROUTE .STK-MED ONE Stop: 07/25/21 07:27 Ropivacaine (Ropivacaine 0.5% 5 Mg/Ml 30 Ml Sdv) Confirm Administered Dose 30 ml .ROUTE .STK-MED ONE Stop: 07/25/21 07:34 Sodium Chloride (Sodium Chloride 0.9% 10 Ml Syringe) 10 ml FLUSH ASDIRECTED PRN PRN Reason: Keep Vein Open Stop: 07/25/21 18:00 Tranexamic Acid (Tranexamic Acid 1,000 Mg/10 Ml Amp) Confirm Administered Dose 1,000 mg .ROUTE .STK-MED ONE Stop: 07/25/21 07:05 Last Admin: 07/25/21 09:32 Dose: 1,000 mg Documented by: Vancomycin HCl (Vancomycin 1 Gm Sdv) Confirm Administered Dose 1 gm .ROUTE .STK- MED ONE Stop: 07/25/21 07:05 Last Admin: 07/25/21 09:32 Dose: 1 gm Documented by: - Exam Quality Assessment: DVT Prophylaxis. No: Supplemental Oxygen, Urine Catheter General: Alert, Oriented, Cooperative, No Acute Distress HEENT: Pupils Equal, Pupils Reactive, Mucous Membr. Moist/[place] Neck: Supple, Trachea Midline Lungs: Clear to Auscultation, Normal Respiratory Effort Cardiovascular: Regular Rate, Regular Rhythm GI/Abdominal Exam: Normal Bowel Sounds, Soft, Non-Tender, No Distention (Female) Exam: Deferred Back Exam: Normal Inspection, Full Range of Motion Extremities: Pedal Edema (Bilateral pedal edema worse on right due to chronic lymphedema of the entire right side.), Leg Pain, Limited Range of Motion, Other (Bandage in place on right leg. Bandages dry and intact.) Peripheral Pulses: 1+: Dorsalis Pedis (L), Dorsalis Pedis (R), 2+: Radial (L), Radial (R) Skin: Warm, Dry, Intact Wound/Incisions: Dressing Dry and Intact Neurological: No New Focal Deficit Psy/Mental Status: Alert, Normal Affect, Normal Mood Sepsis Event Note - Evaluation Sepsis Screening Result: No Definite Risk - Focused Exam Vital Signs: Vital Signs Temp Pulse Resp BP Pulse Ox 07/26/21 04:11 97.9 F 74 18 135/93 H 91 L 07/25/21 23:48 98.4 F 75 14 123/34 L 95 07/25/21 23:00 15 07/25/21 22:20 68 98 07/25/21 22:00 15 07/25/21 21:02 64 9 L 119/55 L 98 07/25/21 21:00 9 L 07/25/21 20:47 63 11 L 120/56 L 98 07/25/21 20:32 66 10 L 130/63 98 07/25/21 20:17 62 18 129/59 L 98 07/25/21 20:02 60 11 L 113/64 98 07/25/21 20:00 10 L 07/25/21 19:47 57 L 14 137/86 98 07/25/21 19:32 58 L 10 L 145/60 H 100 07/25/21 19:20 68 17 133/73 99 Consult PN Assessment/Plan POD#: 1 Procedures: Procedures CT LOWER EXTREMITY W/O DYE (07/08/21) EMERGENCY DEPT VISIT (05/04/19) EMERGENCY DEPT VISIT (12/06/16) EXTREMITY STUDY (05/04/19) MR-STAPH DNA AMP PROBE (07/08/21) X-RAY EXAM UNILAT RIBS/CHEST (12/06/16) (1) S/P total knee arthroplasty SNOMED Code(s): 9724444354554, 558114413, 1381650795032 Code(s): Z96.659 - PRESENCE OF UNSPECIFIED ARTIFICIAL KNEE JOINT Priority: High Current Visit: Yes Qualifiers: Laterality: right Qualified Code(s): Z96.651 - Presence of right artificial knee joint (2) Osteoarthritis SNOMED Code(s): 551590764 Code(s): M19.90 - UNSPECIFIED OSTEOARTHRITIS, UNSPECIFIED SITE Priority: High Current Visit: Yes Qualifiers: Osteoarthritis location: knee Osteoarthritis type: primary Laterality: right Qualified Code(s): M17.11 - Unilateral primary osteoarthritis, right knee (3) Hypothyroidism SNOMED Code(s): 27186781 Code(s): E03.9 - HYPOTHYROIDISM, UNSPECIFIED Priority: Medium Current Visit: No Qualifiers: Hypothyroidism type: unspecified Qualified Code(s): E03.9 - Hypothyroidism, unspecified (4) HTN (hypertension) SNOMED Code(s): 08190607 Code(s): I10 - ESSENTIAL (PRIMARY) HYPERTENSION Priority: Medium Current Visit: No Qualifiers: Hypertension type: unspecified Qualified Code(s): I10 - Essential (primary) hypertension (5) New onset a-fib SNOMED Code(s): 95697602 Code(s): I48.91 - UNSPECIFIED ATRIAL FIBRILLATION Priority: High Current Visit: Yes (6) Type 2 diabetes mellitus SNOMED Code(s): 94278321 Code(s): E11.9 - TYPE 2 DIABETES MELLITUS WITHOUT COMPLICATIONS Priority: Medium Current Visit: Yes Qualifiers: Diabetes 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 long insulin use: without care home use Diabetes mellitus complication status: with other specified complication Qualified Code(s): E11.69 - Type 2 diabetes mellitus with other specified complication (7) History of breast cancer SNOMED Code(s): 659164606 Code(s): Z85.3 - PERSONAL HISTORY OF MALIGNANT NEOPLASM OF BREAST Priority: Low Current Visit: No (8) History of right mastectomy SNOMED Code(s): 415004836, 238826658 Code(s): Z90.11 - ACQUIRED ABSENCE OF RIGHT BREAST AND NIPPLE Priority: Low Current Visit: No Problem List Initiated/Reviewed/Updated: Yes My Orders Last 24 Hours: My Active Orders 07/25/21 14:43 Telemetry Monitoring [Cardiac Monitoring] [RC] . DIRECTED 07/25/21 15:21 Blood Glucose Check, Bedside [RC] QIDACANDBED 07/25/21 15:37 Consult to Case Management/Inventory Control Planner [CONS] Routine 07/25/21 17:00 Insulin Lispro [HumaLOG] See Protocol SUBCUT QIDACANDBED 07/26/21 07:00 Levothyroxine 75 mcg PO DAILY@0700 Levothyroxine [Synthroid] 100 mcg PO DAILY@0700 07/26/21 09:00 Apixaban [Eliquis] 5 mg PO BID Cholecalciferol (Vitamin D3) [Vitamin D3] 50 mcg PO DAILY Losartan [Cozaar] 100 mg PO DAILY Plan: S/P total knee arthroplasty Osteoarthritis * Management per primary team * PT/OT * Pain management per primary team * Switch DVT prophylaxis to Eliquis as new onset A. fib Hypothyroidism * TSH low * Decrease home levothyroxine to 150mcg daily at 0700 * PCP follow-up HTN (hypertension) * Home BP meds as ordered * Monitor vital signs * No acute concerns New onset a-fib, resolved * Cardizem 20 mg IV push bolus given 07/25/2021 with conversion to NSR * Continue home propranolol * Telemetry * 5 mg twice daily Eliquis as above * Echocardiogram ordered Type 2 diabetes mellitus * Hold home p.o. diabetes medications * 4 times daily before meals and bedtime blood glucose checks * Diabetic diet * Medium dose sliding scale insulin History of breast cancer History of right mastectomy * No acute concerns * No blood pressures on right arm Code status: Full Code PCP: Suzanna Santacruz NP DVT prophylaxis: Eliquis as above This is a 76-year-old female who was admitted observation status after new onset A. fib noted postoperatively from right TKA. This was confirmed with twelve- lead EKG. She was given a 20 mg Cardizem bolus which did result in conversion to a sinus rhythm. Patient is on propranolol daily already and this will be continued. Patient did note that she does have a history of feeling palpitations and it is likely that she has been going in and out of A. fib without anyone noticing. Because of this we will start her on 5 mg twice daily Eliquis for stroke prophylaxis. Echocardiogram was obtained and is pending. This will be forwarded to the primary care provider once it arrives. TSH was obtained and was 0.203. Patient is on 175 mcg of daily levothyroxine and this will be decreased to 150 mcg. Recommend PCP follow-up with this in 3 months with a lab recheck. Otherwise her labs look good. She has been up ambulating and urinating without issues. She has been having some significant pain however primary team is working on this. She has worked with PT and OT and is doing quite well. From hospital standpoint she is clear for discharge. Recommend follow-up with primary care provider within 7 to 10 days of discharge, sooner if needed. Recommend repeat CBC, CMP, and magnesium at that time. Recommend outpatient cardiology follow-up regarding new onset atrial fibrillation. Thank you for allowing us to participate in the care of this patient!!
[2021-07-26] MEDS ORDERED: Aspirin 325 MG Tab.EC PO SCH (09:00)
[2021-07-26] MEDS ORDERED: Cholecalciferol (Vitamin D3) 25 MCG Tab PO SCH (09:00)
[2021-07-26] MEDS ORDERED: Apixaban 5 MG Tab PO SCH (09:00)
[2021-07-26] MEDS ORDERED: Losartan 100 MG Tab PO SCH (09:00)
[2021-07-26 09:05] VITALS: PULSE 75
--- NOTE | 2021-07-26 09:46 | PCM48HPAN ---
Post Anesthesia Note - EVALUATION WITHIN 48HRS OF ANESTHETIC Vital Signs in Normal Range: Yes Patient Participated in Evaluation: Yes Respiratory Function Stable: Yes Airway Patent: Yes Cardiovascular Function Stable: Yes (Patient stated she was feeling better than yesterday; no SOB/CP, HR stable) Hydration Status Stable: Yes Pain Control Satisfactory: Yes Nausea and Vomiting Control Satisfactory: Yes Mental Status Recovered: Yes Vital Signs: Last Vital Signs Temp 98.4 F 07/26/21 08:45 Pulse 75 07/26/21 08:45 Resp 25 H 07/26/21 09:00 BP 139/52 L 07/26/21 08:45 Pulse Ox 91 L 07/26/21 08:45
[2021-07-26] MEDS: Docusate Sodium 100 MG Cap PO SCH (09:50)
[2021-07-26 09:51] VITALS: BP 149/60
[2021-07-26] MEDS ORDERED: Ketorolac 15 MG/ML SDV IVPUSH ONE (10:28)
--- NOTE | 2021-07-26 16:23 | PCM.SURGPN ---
- General Info Date of Service: 07/26/21 POD#: 1 Functional Status: Reports: Pain Controlled, Tolerating Diet, Ambulating, Urinating, Incentive Spirometry - Patient Data Vitals - Most Recent: Last Vital Signs Temp 98.4 F 07/26/21 08:45 Pulse 75 07/26/21 08:45 Resp 25 H 07/26/21 09:00 BP 149/60 H 07/26/21 09:48 Pulse Ox 91 L 07/26/21 08:45 Weight - Most Recent: 197 lb 3.2 oz I&O - Last 24 Hours: Intake & Output 07/26/21 07/26/21 07/26/21 06:59 14:59 22:59 Intake Total 1150 360 Output Total 800 Balance 350 360 Lab Results Last 24 Hrs: Laboratory Results - last 24 hr 07/25/21 07/25/21 07/25/21 Range/Units 17:21 20:14 20:14 WBC 18.29 H (3.98-10.04) K/mm3 RBC 4.68 (3.98-5.22) M/mm3 Hgb 13.1 (11.2-15.7) gm/dl Hct 40.7 (34.1-44.9) % MCV 87.0 (79.4-94.8) fl MCH 28.0 (25.6-32.2) pg MCHC 32.2 (32.2-35.5) g/dl RDW Std Deviation 42.5 (36.4-46.3) fL Plt Count 296 (182-369) K/mm3 MPV 9.7 (9.4-12.3) fl Neut % (Auto) 87.3 H (34.0-71.1) % Lymph % (Auto) 6.7 L (19.3-51.7) % Gooding % (Auto) 5.6 (4.7-12.5) % Eos % (Auto) 0 L (0.7-5.8) Baso % (Auto) 0.1 (0.1-1.2) % Neut # (Auto) 15.98 H (1.56-6.13) K/mm3 Lymph # (Auto) 1.22 (1.18-3.74) K/mm3 Gooding # (Auto) 1.02 H (0.24-0.36) K/mm3 Eos # (Auto) 0.00 L (0.04-0.36) K/mm3 Baso # (Auto) 0.02 (0.01-0.08) K/mm3 Sodium (136-145) mEq/L Potassium (3.5-5.1) mEq/L Chloride (98-107) mEq/L Carbon Dioxide (21-32) mEq/L Anion Gap (5-15) BUN (7-18) mg/dL Creatinine (0.55-1.02) mg/dL Est Cr Clr Drug Dosing mL/min Estimated GFR (MDRD) (>60) mL/min BUN/Creatinine Ratio (14-18) Glucose (70-99) mg/dL POC Glucose 220 H (70-99) mg/dL Calcium (8.5-10.1) mg/dL Total Bilirubin (0.2-1.0) mg/dL AST (15-37) U/L ALT (14-59) U/L Alkaline Phosphatase (46-116) U/L Total Protein (6.4-8.2) g/dl Albumin (3.4-5.0) g/dl Globulin gm/dL Albumin/Globulin Ratio (1-2) TSH 3rd Generation 0.203 L (0.358-3.74) uIU/mL 07/25/21 07/25/21 07/26/21 Range/Units 20:14 21:05 06:09 WBC (3.98-10.04) K/mm3 RBC (3.98-5.22) M/mm3 Hgb (11.2-15.7) gm/dl Hct (34.1-44.9) % MCV (79.4-94.8) fl MCH (25.6-32.2) pg MCHC (32.2-35.5) g/dl RDW Std Deviation (36.4-46.3) fL Plt Count (182-369) K/mm3 MPV (9.4-12.3) fl Neut % (Auto) (34.0-71.1) % Lymph % (Auto) (19.3-51.7) % Gooding % (Auto) (4.7-12.5) % Eos % (Auto) (0.7-5.8) Baso % (Auto) (0.1-1.2) % Neut # (Auto) (1.56-6.13) K/mm3 Lymph # (Auto) (1.18-3.74) K/mm3 Gooding # (Auto) (0.24-0.36) K/mm3 Eos # (Auto) (0.04-0.36) K/mm3 Baso # (Auto) (0.01-0.08) K/mm3 Sodium 134 L (136-145) mEq/L Potassium 4.0 (3.5-5.1) mEq/L Chloride 98 (98-107) mEq/L Carbon Dioxide 29 (21-32) mEq/L Anion Gap 11.0 (5-15) BUN 21 H (7-18) mg/dL Creatinine 0.9 (0.55-1.02) mg/dL Est Cr Clr Drug Dosing 47.10 mL/min Estimated GFR (MDRD) > 60 (>60) mL/min BUN/Creatinine Ratio 23.3 H (14-18) Glucose 226 H (70-99) mg/dL POC Glucose 206 H 147 H (70-99) mg/dL Calcium 8.8 (8.5-10.1) mg/dL Total Bilirubin 1.5 H (0.2-1.0) mg/dL AST 23 (15-37) U/L ALT 26 (14-59) U/L Alkaline Phosphatase 58 (46-116) U/L Total Protein 7.5 (6.4-8.2) g/dl Albumin 3.3 L (3.4-5.0) g/dl Globulin 4.2 gm/dL Albumin/Globulin Ratio 0.8 L (1-2) TSH 3rd Generation (0.358-3.74) uIU/mL 07/26/21 Range/Units 10:20 WBC (3.98-10.04) K/mm3 RBC (3.98-5.22) M/mm3 Hgb (11.2-15.7) gm/dl Hct (34.1-44.9) % MCV (79.4-94.8) fl MCH (25.6-32.2) pg MCHC (32.2-35.5) g/dl RDW Std Deviation (36.4-46.3) fL Plt Count (182-369) K/mm3 MPV (9.4-12.3) fl Neut % (Auto) (34.0-71.1) % Lymph % (Auto) (19.3-51.7) % Gooding % (Auto) (4.7-12.5) % Eos % (Auto) (0.7-5.8) Baso % (Auto) (0.1-1.2) % Neut # (Auto) (1.56-6.13) K/mm3 Lymph # (Auto) (1.18-3.74) K/mm3 Gooding # (Auto) (0.24-0.36) K/mm3 Eos # (Auto) (0.04-0.36) K/mm3 Baso # (Auto) (0.01-0.08) K/mm3 Sodium (136-145) mEq/L Potassium (3.5-5.1) mEq/L Chloride (98-107) mEq/L Carbon Dioxide (21-32) mEq/L Anion Gap (5-15) BUN (7-18) mg/dL Creatinine (0.55-1.02) mg/dL Est Cr Clr Drug Dosing mL/min Estimated GFR (MDRD) (>60) mL/min BUN/Creatinine Ratio (14-18) Glucose (70-99) mg/dL POC Glucose 181 H (70-99) mg/dL Calcium (8.5-10.1) mg/dL Total Bilirubin (0.2-1.0) mg/dL AST (15-37) U/L ALT (14-59) U/L Alkaline Phosphatase (46-116) U/L Total Protein (6.4-8.2) g/dl Albumin (3.4-5.0) g/dl Globulin gm/dL Albumin/Globulin Ratio (1-2) TSH 3rd Generation (0.358-3.74) uIU/mL Med Orders - Current: Current Medications Apixaban (Apixaban 5 Mg Tab) 5 mg PO BID [facility] Last Admin: 07/26/21 09:50 Dose: 5 mg Documented by: Bisacodyl (Bisacodyl 5 Mg Tab) 5 mg PO DAILY PRN PRN Reason: Constipation Cholecalciferol (Cholecalciferol (Vitamin D3) 25 Mcg Tab) 50 mcg PO DAILY [facility] Last Admin: 07/26/21 09:48 Dose: 50 mcg Documented by: Docusate Sodium (Docusate Sodium 100 Mg Cap) 100 mg PO BID [facility] Last Admin: 07/26/21 09:50 Dose: 100 mg Documented by: Insulin Human Lispro (Insulin Lispro 100 Unit/Ml 10 Ml Vial) 0 unit SUBCUT QIDACANDBED [facility]; Protocol Last Admin: 07/26/21 11:03 Dose: 2 units Documented by: Levothyroxine Sodium (Levothyroxine 75 Mcg Tab) 150 mcg PO DAILY@0700 [facility] Losartan Potassium (Losartan 100 Mg Tab) 100 mg PO DAILY [facility] Last Admin: 07/26/21 09:48 Dose: 100 mg Documented by: Magnesium Hydroxide (Magnesium Hydroxide 400 Mg/5 Ml Susp 30 Ml Cup) 30 ml PO BID PRN PRN Reason: Constipation Ondansetron HCl (Ondansetron 4 Mg/2 Ml Sdv) 4 mg IVPUSH Q6H PRN PRN Reason: Nausea/Vomiting Oxycodone HCl (Oxycodone 5 Mg Tab) 5 - 10 mg PO Q4H PRN PRN Reason: Pain (moderate 4-6) Last Admin: 07/26/21 11:01 Dose: 5 mg Documented by: Senna (Sennosides 8.6 Mg Tab) 8.6 mg PO BID PRN PRN Reason: Constipation Discontinued Medications Acetaminophen (Acetaminophen 325 Mg Tab) 975 mg PO ONETIME [facility] Stop: 07/25/21 14:00 Last Admin: 07/25/21 07:30 Dose: 975 mg Documented by: Aspirin (Aspirin 325 Mg Tab.Ec) 325 mg PO BID [facility] Cefazolin Sodium (Cefazolin 1 Gm Vial) Confirm Administered Dose 2 gm .ROUTE .STK-MED ONE Stop: 07/25/21 07:27 Morphine Sulfate 8 mg/Epinephrine HCl 0.3 mg/Cefuroxime Sodium 750 mg/Ketorolac Tromethamine 30 mg/Sodium Chloride 7.9 ml 0 mg .XX ASDIRECTED PRN PRN Reason: Pain Stop: 07/25/21 16:00 Last Admin: 07/25/21 09:20 Dose: 788.3 mg Documented by: Diltiazem HCl (Diltiazem 50 Mg/10 Ml Sdv) 20 mg IVPUSH ONETIME ONE Stop: 07/25/21 14:43 Last Admin: 07/25/21 15:00 Dose: 20 mg Documented by: Epinephrine HCl (Epinephrine 1 Mg/Ml Sdv) Confirm Administered Dose 1 mg .ROUTE .STK-MED ONE Stop: 07/25/21 07:33 Fentanyl (Fentanyl 100 Mcg/2 Ml Sdv) 50 mcg IVPUSH Q5M PRN PRN Reason: Pain Stop: 07/25/21 18:00 Last Admin: 07/25/21 10:38 Dose: 50 mcg Documented by: Hydromorphone HCl (Hydromorphone 0.5 Mg/0.5 Ml Syringe) 0.5 mg IVPUSH Q10M PRN PRN Reason: Pain (severe 7-10) Stop: 07/25/21 18:00 Lactated Ringer's (Ringers, Lactated) 1,000 mls @ 125 mls/hr IV ASDIRECTED [facility] Stop: 07/25/21 23:00 Last Admin: 07/25/21 17:32 Dose: 125 mls/hr Documented by: Lactated Ringer's (Ringers, Lactated) Confirm Administered Dose 1,000 mls @ as directed .ROUTE .STK-MED ONE Stop: 07/25/21 07:27 Cefazolin Sodium/Dextrose 2 gm (/ Premix) 50 mls @ 100 mls/hr IV Q8H [facility] Stop: 07/26/21 11:29 Last Admin: 07/26/21 11:04 Dose: 100 mls/hr Documented by: Ketorolac Tromethamine (Ketorolac 15 Mg/Ml Sdv) 15 mg IVPUSH ONETIME ONE Stop: 07/26/21 10:29 Last Admin: 07/26/21 11:05 Dose: 15 mg Documented by: Levothyroxine Sodium (Levothyroxine 100 Mcg Tab) 100 mcg PO DAILY@0700 [facility] Last Admin: 07/26/21 06:10 Dose: 100 mcg Documented by: Levothyroxine Sodium (Levothyroxine 75 Mcg Tab) 75 mcg PO DAILY@0700 [facility] Last Admin: 07/26/21 06:10 Dose: 75 mcg Documented by: Lidocaine HCl (Lidocaine 1% 5 Ml Sdv) Confirm Administered Dose 5 ml .ROUTE .STK-MED ONE Stop: 07/25/21 08:10 Lidocaine/Sodium Bicarbonate (Lidocaine 1%/Sod Bicarbonate In Ns 8.4% 1 Ml Syringe) 0.25 ml IDERM ONETIME PRN PRN Reason: Prior to IV Start Stop: 07/25/21 18:00 Metoprolol Tartrate (Metoprolol Tartrate 25 Mg Tab) 25 mg PO Q12H [facility] Last Admin: 07/25/21 17:38 Dose: Not Given Documented by: Midazolam HCl (Midazolam 1 Mg/Ml 2 Ml Sdv) Confirm Administered Dose 2 mg .ROUTE .STK-MED ONE Stop: 07/25/21 07:27 Miscellaneous Medication (Phenylephrine Hcl In 0.9% Nacl 1 Mg/10 Ml Syringe) C onfirm Administered Dose 0 mg .ROUTE .STK-MED ONE Stop: 07/25/21 08:40 Ondansetron HCl (Ondansetron 4 Mg/2 Ml Sdv) 4 mg IVPUSH ONETIME PRN PRN Reason: Nausea/Vomiting Stop: 07/25/21 18:00 Last Admin: 07/25/21 10:36 Dose: 4 mg Documented by: Oxycodone HCl (Oxycodone Er 10 Mg Tab.Er) 10 mg PO ONETIME [facility] Stop: 07/25/21 14:00 Last Admin: 07/25/21 07:30 Dose: 10 mg Documented by: Oxycodone HCl (Oxycodone 5 Mg Tab) 5 - 10 mg PO Q4H PRN PRN Reason: Pain Stop: 07/25/21 16:00 Oxycodone HCl (Oxycodone 5 Mg Tab) 5 - 10 mg PO Q4H PRN PRN Reason: Pain Stop: 07/25/21 23:00 Last Admin: 07/25/21 15:25 Dose: 10 mg Documented by: Oxycodone HCl (Oxycodone 5 Mg Tab) 5 - 10 mg PO Q4H PRN PRN Reason: Pain Pregabalin (Pregabalin 25 Mg Cap) 50 mg PO ONETIME [facility] Stop: 07/25/21 14:00 Last Admin: 07/25/21 07:29 Dose: 50 mg Documented by: Propofol (Propofol 200 Mg/20 Ml Sdv) Confirm Administered Dose 400 mg .ROUTE .STK-MED ONE Stop: 07/25/21 07:27 Ropivacaine (Ropivacaine 0.5% 5 Mg/Ml 30 Ml Sdv) Confirm Administered Dose 30 ml .ROUTE .STK-MED ONE Stop: 07/25/21 07:34 Sodium Chloride (Sodium Chloride 0.9% 10 Ml Syringe) 10 ml FLUSH ASDIRECTED PRN PRN Reason: Keep Vein Open Stop: 07/25/21 18:00 Tranexamic Acid (Tranexamic Acid 1,000 Mg/10 Ml Amp) Confirm Administered Dose 1,000 mg .ROUTE .STK-MED ONE Stop: 07/25/21 07:05 Last Admin: 07/25/21 09:32 Dose: 1,000 mg Documented by: Vancomycin HCl (Vancomycin 1 Gm Sdv) Confirm Administered Dose 1 gm .ROUTE .STK- MED ONE Stop: 07/25/21 07:05 Last Admin: 07/25/21 09:32 Dose: 1 gm Documented by: - Exam Wound/Incisions: Dressing Dry and Intact General: Alert, Cooperative, No Acute Distress Lungs: Normal Respiratory Effort Extremities: Other (NVS intact for RLE. Yu's negative.) Sepsis Event Note - Evaluation Sepsis Screening Result: No Definite Risk - Focused Exam Vital Signs: Vital Signs Temp Pulse Resp BP Pulse Ox 07/26/21 09:48 149/60 H 07/26/21 09:00 25 H 07/26/21 08:45 98.4 F 75 20 139/52 L 91 L 07/26/21 08:00 20 07/26/21 07:00 15 07/26/21 06:00 11 L 07/26/21 05:00 12 - Problem List Review Problem List Initiated/Reviewed/Updated: Yes - My Orders Last 24 Hours: Active Orders 24 hr Category Date Time Status Ready for Discharge [RC] PER UNIT ROUTINE Care 07/26/21 11:25 Active Consult to Case Management/[employer] [CONS] Cons 07/25/21 15:37 Active Routine Apixaban [Eliquis] Med 07/26/21 09:00 Active 5 mg PO BID Cholecalciferol (Vitamin D3) [Vitamin D3] Med 07/26/21 09:00 Active 50 mcg PO DAILY Docusate Sodium [Colace] Med 07/25/21 21:00 Active 100 mg PO BID Insulin Lispro [HumaLOG] Med 07/25/21 17:00 Active See Protocol SUBCUT QIDACANDBED Levothyroxine Med 07/27/21 07:30 Active 150 mcg PO DAILY@0700 Losartan [Cozaar] Med 07/26/21 09:00 Active 100 mg PO DAILY oxyCODONE Med 07/25/21 20:57 Active 5 - 10 mg PO Q4H PRN Medication Orders Apixaban (Apixaban 5 Mg Tab) 5 mg PO BID [facility] Last Admin: 07/26/21 09:50 Dose: 5 mg Documented by: KEDAR Bisacodyl (Bisacodyl 5 Mg Tab) 5 mg PO DAILY PRN PRN Reason: Constipation Cholecalciferol (Cholecalciferol (Vitamin D3) 25 Mcg Tab) 50 mcg PO DAILY [facility] Last Admin: 07/26/21 09:48 Dose: 50 mcg Documented by: KEDAR Docusate Sodium (Docusate Sodium 100 Mg Cap) 100 mg PO BID [facility] Last Admin: 07/26/21 09:50 Dose: 100 mg Documented by: Admin: 07/25/21 21:13 Dose: 100 mg Documented by: MADELEINE Insulin Human Lispro (Insulin Lispro 100 Unit/Ml 10 Ml Vial) 0 unit SUBCUT QIDACANDBED [facility]; Protocol Last Admin: 07/26/21 11:03 Dose: 2 units Documented by: Admin: 07/26/21 06:09 Dose: Not Given Documented by: Admin: 07/25/21 21:13 Dose: 4 units Documented by: Admin: 07/25/21 17:33 Dose: 4 units Documented by: KENDY Levothyroxine Sodium (Levothyroxine 75 Mcg Tab) 150 mcg PO DAILY@0700 [facility] Losartan Potassium (Losartan 100 Mg Tab) 100 mg PO DAILY [facility] Last Admin: 07/26/21 09:48 Dose: 100 mg Documented by: KEDAR Magnesium Hydroxide (Magnesium Hydroxide 400 Mg/5 Ml Susp 30 Ml Cup) 30 ml PO BID PRN PRN Reason: Constipation Ondansetron HCl (Ondansetron 4 Mg/2 Ml Sdv) 4 mg IVPUSH Q6H PRN PRN Reason: Nausea/Vomiting Oxycodone HCl (Oxycodone 5 Mg Tab) 5 - 10 mg PO Q4H PRN PRN Reason: Pain (moderate 4-6) Last Admin: 07/26/21 11:01 Dose: 5 mg Documented by: Admin: 07/26/21 07:29 Dose: 5 mg Documented by: Admin: 07/26/21 02:53 Dose: 5 mg Documented by: Admin: 07/25/21 21:14 Dose: 5 mg Documented by: MADELEINE Senna (Sennosides 8.6 Mg Tab) 8.6 mg PO BID PRN PRN Reason: Constipation - Assessment Assessment (Free Text/Narrative):: POD#1 - right TKA - Plan Plan (Free Text/Narrative):: 1. Pt is doing well re: knee rehab and from the cardiac standpoint. D/C to home today. 2. Hgb 13.1. 3. D/C ASA and will use Eliquis per Hospitalist instruction due to a-fib noted post-op. 4. Outpatient therapy and f/u at Clinic scheduled. The pt's case was discussed with Dr. Hsieh. Discussed pt's case with Hospitalist service also.
--- NOTE | 2021-07-26 16:42 | PCM.DCSUM1 ---
Discharge Summary - Hospital Course Brief History: Jenna is a 76 yo female who underwent right TKA with Dr. Hsieh on 07-25-2021. The procedure was completed under spinal anesthesia with sedation. The pt tolerated the procedure well. She was, however, noted to have post- operative atrial fibrillation. The pt was admitted to Hospital under Observation status. Medical management was provided by the Hospitalist service. The pt's Hgb on POD#1 was 13.1. On POD#1, Eliquis PO BID was initiated due to a-fibrillation and for VTE prophylaxis. SCDs and TEDs were also ordered. A Mepilex dressing was placed at the incision site at the time of surgery and remained clean and dry. The pt participated in P.T. and O.T. and progressed well. The pt was allowed to WBAT. On POD#1, the pt was deemed appropriate to discharge to home with family. Diagnosis: Stroke: No - Discharge Data Discharge Date: 07/26/21 Discharge Disposition: Home, Self-Care 01 Condition: Good - Referral to Home Health Primary Care Physician: Suzanna Santacruz CONTOUR BAND SAW OPERATOR VERTICAL - Patient Summary/Data Consults: Consultations 07/25/21 14:41 OT Evaluation and Treatment [CONS] Routine PT Evaluation and Treatment [CONS] Routine 07/25/21 14:43 Consult to Physician [CONS] Routine 07/25/21 15:37 Consult to Case Management/Managed Services Sales Consultant [CONS] Routine - Patient Instructions Diet: Usual Diet as Tolerated Activity: Apply Ice, As Tolerated, Elevate Extremity, Full Weight Bearing Driving: Do Not Drive Showering/Bathing: May Shower Wound/Incision Care: Keep Operative Site/Wound Site Clean and Dry, Do NOT Change Dressing Notify Provider of: Fever, Increased Pain, Swelling and Redness, Drainage, Nausea and/or Vomiting Other/Special Instructions: Please get up and moving around EVERY HOUR while awake. This helps to prevent blood clots. Please use your walker and have help with mobility as needed. Take a short walk in your home every hour while awake. Starting on 07-26-2021, please take 325mg aspirin TWICE daily. The aspirin is being used for blood clot prevention and not for pain management so please do not miss a dose of the medication. You could use a medication like Pepcid or famotidine and a medication like Prilosec or Nexium to protect your stomach while you are using the aspirin. At home, please complete the exercises that you learned after surgery. Schedule for physical therapy. Use the pain medication as needed. The medication may cause drowsiness and constipation. Contact your primary care provider for instructions if you are constipated. You may use a stool softener like docusate sodium or Colace 100mg twice daily and/or a laxative like Miralax daily for constipation. Increase your water and fiber intake while you are using the pain medication. Please discontinue use of the prescription pain medication as soon as able. The goal is to use the least amount of prescription pain medication as possible and to discontinue use of the prescription pain medication as soon as possible. Please do not use other medications that may cause drowsiness (other pain medications, anxiety pills, cold medications, sleeping pills, etc) while using the prescription pain medication. Do not use alcohol while using the pain medication. You may use acetaminophen or Tylenol for pain management, however, please ensure you are not using over 4000 mg or 4 grams of acetaminophen per day. At this time, please do not use ibuprofen (Motrin, Advil) or naproxen (Aleve) for pain management as you are using the aspirin. When the aspirin course is completed in 4 to 6 weeks, you could use ibuprofen or naproxen for pain management (if this is allowed by your primary care provider). On the day following surgery, you may remove the FRANCIA bandage on the surgical limb and put on the RAFAEL hose. If you can tolerate use of the RAFAEL hose, wear them during the day and remove them at night. Elevate the limb to decrease swelling. Elevating the limb above the level of the heart will be most effective. Elevating the foot higher than the knee will help to decrease swelling in the foot. Place ice to the area often. Place a towel between your skin and the blue pad. Please keep the dressing in place until follow-up. As long as the dressing is sealed and without a hole, the dressing is water resistant and therefore, you may have a shower. Please do not soak that dressing in a tub, pool, whirlpool. Notify the Clinic if the dressing becomes saturated. Increase your protein intake while you are healing. It is normal to have swelling and bruising at the surgical site, as well as above and below the surgical site. Please closely monitor your sugars. Notify your primary care provider of the values. Elevated sugars can increase the risk of infection. If you have questions or concerns, please call [phone] and leave a message for the nurse. Your call will be returned. Follow-up with primary care provider within 7-10 days of discharge, sooner if needed. Follow- up outpatient with cardiology at next available. - Discharge Plan *PRESCRIPTION DRUG MONITORING PROGRAM REVIEWED*: No *COPY OF PRESCRIPTION DRUG MONITORING REPORT IN PATIENT WALLACE: No Prescriptions/Med Rec: Apixaban [Eliquis] 5 mg PO BID #40 tablet Levothyroxine 150 mcg PO DAILY@0700 #20 tab oxyCODONE 5 - 10 mg PO Q4H PRN #40 tab PRN Reason: Pain Home Medications: Home Meds Losartan Potassium 100 mg PO DAILY 12/06/16 [History] Propranolol [Inderal LA] 60 mg PO DAILY 12/06/16 [History] [place]wood-3/DHA/Epa/Fish Oil [[place]-3 Fish Oil 1,200 MG Sfgl] 1,200 mg PO DAILY 05/04/19 [History] oxyCODONE 5 - 10 mg PO Q4H PRN #40 tab 07/22/21 [Rx] Cholecalciferol (Vitamin D3) [Vitamin D3] 2,000 unit PO DAILY 07/24/21 [History] glipiZIDE [Glipizide ER] 10 mg PO BID 07/24/21 [History] hydroCHLOROthiazide [Hydrochlorothiazide] 12.5 mg PO DAILY 07/24/21 [History] metFORMIN HCl [Fortamet] 1,000 mg PO BID 07/24/21 [History] Apixaban [Eliquis] 5 mg PO BID #40 tablet 07/26/21 [Rx] Levothyroxine 150 mcg PO DAILY@0700 #20 tab 07/26/21 [Rx] Oxygen Therapy Mode: Room Air Patient Handouts: Oxycodone tablets or capsules, Aspirin, ASA oral tablets, Apixaban oral tablets Referrals: Suzanna Santacruz NP [Primary Care Provider] - 08/02/21 1:45 pm (Please arrive at 1:30 for check in) Nannette Wilkerson PA-C [Physician Mechanical Test Technician] - 08/02/21 9:00 am - Discharge Summary/Plan Comment DC Time >30 min.: No Total # of Minutes for Discharge Time: 25 minutes - Patient Data Vitals - Most Recent: Last Vital Signs Temp 98.4 F 07/26/21 08:45 Pulse 75 07/26/21 08:45 Resp 25 H 07/26/21 09:00 BP 149/60 H 07/26/21 09:48 Pulse Ox 91 L 07/26/21 08:45 Weight - Most Recent: 197 lb 3.2 oz I&O - Last 24 hours: Intake & Output 07/26/21 07/26/21 07/26/21 06:59 14:59 22:59 Intake Total 1150 360 Output Total 800 Balance 350 360 Lab Results - Last 24 hrs: Laboratory Results - last 24 hr 07/25/21 07/25/21 07/25/21 Range/Units 17:21 20:14 20:14 WBC 18.29 H (3.98-10.04) K/mm3 RBC 4.68 (3.98-5.22) M/mm3 Hgb 13.1 (11.2-15.7) gm/dl Hct 40.7 (34.1-44.9) % MCV 87.0 (79.4-94.8) fl MCH 28.0 (25.6-32.2) pg MCHC 32.2 (32.2-35.5) g/dl RDW Std Deviation 42.5 (36.4-46.3) fL Plt Count 296 (182-369) K/mm3 MPV 9.7 (9.4-12.3) fl Neut % (Auto) 87.3 H (34.0-71.1) % Lymph % (Auto) 6.7 L (19.3-51.7) % [place] % (Auto) 5.6 (4.7-12.5) % Eos % (Auto) 0 L (0.7-5.8) Baso % (Auto) 0.1 (0.1-1.2) % Neut # (Auto) 15.98 H (1.56-6.13) K/mm3 Lymph # (Auto) 1.22 (1.18-3.74) K/mm3 [place] # (Auto) 1.02 H (0.24-0.36) K/mm3 Eos # (Auto) 0.00 L (0.04-0.36) K/mm3 Baso # (Auto) 0.02 (0.01-0.08) K/mm3 Sodium (136-145) mEq/L Potassium (3.5-5.1) mEq/L Chloride (98-107) mEq/L Carbon Dioxide (21-32) mEq/L Anion Gap (5-15) BUN (7-18) mg/dL Creatinine (0.55-1.02) mg/dL Est Cr Clr Drug Dosing mL/min Estimated GFR (MDRD) (>60) mL/min BUN/Creatinine Ratio (14-18) Glucose (70-99) mg/dL POC Glucose 220 H (70-99) mg/dL Calcium (8.5-10.1) mg/dL Total Bilirubin (0.2-1.0) mg/dL AST (15-37) U/L ALT (14-59) U/L Alkaline Phosphatase (46-116) U/L Total Protein (6.4-8.2) g/dl Albumin (3.4-5.0) g/dl Globulin gm/dL Albumin/Globulin Ratio (1-2) TSH 3rd Generation 0.203 L (0.358-3.74) uIU/mL 07/25/21 07/25/21 07/26/21 Range/Units 20:14 21:05 06:09 WBC (3.98-10.04) K/mm3 RBC (3.98-5.22) M/mm3 Hgb (11.2-15.7) gm/dl Hct (34.1-44.9) % MCV (79.4-94.8) fl MCH (25.6-32.2) pg MCHC (32.2-35.5) g/dl RDW Std Deviation (36.4-46.3) fL Plt Count (182-369) K/mm3 MPV (9.4-12.3) fl Neut % (Auto) (34.0-71.1) % Lymph % (Auto) (19.3-51.7) % [place] % (Auto) (4.7-12.5) % Eos % (Auto) (0.7-5.8) Baso % (Auto) (0.1-1.2) % Neut # (Auto) (1.56-6.13) K/mm3 Lymph # (Auto) (1.18-3.74) K/mm3 [place] # (Auto) (0.24-0.36) K/mm3 Eos # (Auto) (0.04-0.36) K/mm3 Baso # (Auto) (0.01-0.08) K/mm3 Sodium 134 L (136-145) mEq/L Potassium 4.0 (3.5-5.1) mEq/L Chloride 98 (98-107) mEq/L Carbon Dioxide 29 (21-32) mEq/L Anion Gap 11.0 (5-15) BUN 21 H (7-18) mg/dL Creatinine 0.9 (0.55-1.02) mg/dL Est Cr Clr Drug Dosing 47.10 mL/min Estimated GFR (MDRD) > 60 (>60) mL/min BUN/Creatinine Ratio 23.3 H (14-18) Glucose 226 H (70-99) mg/dL POC Glucose 206 H 147 H (70-99) mg/dL Calcium 8.8 (8.5-10.1) mg/dL Total Bilirubin 1.5 H (0.2-1.0) mg/dL AST 23 (15-37) U/L ALT 26 (14-59) U/L Alkaline Phosphatase 58 (46-116) U/L Total Protein 7.5 (6.4-8.2) g/dl Albumin 3.3 L (3.4-5.0) g/dl Globulin 4.2 gm/dL Albumin/Globulin Ratio 0.8 L (1-2) TSH 3rd Generation (0.358-3.74) uIU/mL 07/26/21 Range/Units 10:20 WBC (3.98-10.04) K/mm3 RBC (3.98-5.22) M/mm3 Hgb (11.2-15.7) gm/dl Hct (34.1-44.9) % MCV (79.4-94.8) fl MCH (25.6-32.2) pg MCHC (32.2-35.5) g/dl RDW Std Deviation (36.4-46.3) fL Plt Count (182-369) K/mm3 MPV (9.4-12.3) fl Neut % (Auto) (34.0-71.1) % Lymph % (Auto) (19.3-51.7) % [place] % (Auto) (4.7-12.5) % Eos % (Auto) (0.7-5.8) Baso % (Auto) (0.1-1.2) % Neut # (Auto) (1.56-6.13) K/mm3 Lymph # (Auto) (1.18-3.74) K/mm3 [place] # (Auto) (0.24-0.36) K/mm3 Eos # (Auto) (0.04-0.36) K/mm3 Baso # (Auto) (0.01-0.08) K/mm3 Sodium (136-145) mEq/L Potassium (3.5-5.1) mEq/L Chloride (98-107) mEq/L Carbon Dioxide (21-32) mEq/L Anion Gap (5-15) BUN (7-18) mg/dL Creatinine (0.55-1.02) mg/dL Est Cr Clr Drug Dosing mL/min Estimated GFR (MDRD) (>60) mL/min BUN/Creatinine Ratio (14-18) Glucose (70-99) mg/dL POC Glucose 181 H (70-99) mg/dL Calcium (8.5-10.1) mg/dL Total Bilirubin (0.2-1.0) mg/dL AST (15-37) U/L ALT (14-59) U/L Alkaline Phosphatase (46-116) U/L Total Protein (6.4-8.2) g/dl Albumin (3.4-5.0) g/dl Globulin gm/dL Albumin/Globulin Ratio (1-2) TSH 3rd Generation (0.358-3.74) uIU/mL Med Orders - Current: Current Medications Apixaban (Apixaban 5 Mg Tab) 5 mg PO BID [facility] Last Admin: 07/26/21 09:50 Dose: 5 mg Documented by: Bisacodyl (Bisacodyl 5 Mg Tab) 5 mg PO DAILY PRN PRN Reason: Constipation Cholecalciferol (Cholecalciferol (Vitamin D3) 25 Mcg Tab) 50 mcg PO DAILY [facility] Last Admin: 07/26/21 09:48 Dose: 50 mcg Documented by: Docusate Sodium (Docusate Sodium 100 Mg Cap) 100 mg PO BID [facility] Last Admin: 07/26/21 09:50 Dose: 100 mg Documented by: Insulin Human Lispro (Insulin Lispro 100 Unit/Ml 10 Ml Vial) 0 unit SUBCUT QIDACANDBED [facility]; Protocol Last Admin: 07/26/21 11:03 Dose: 2 units Documented by: Levothyroxine Sodium (Levothyroxine 75 Mcg Tab) 150 mcg PO DAILY@0700 [facility] Losartan Potassium (Losartan 100 Mg Tab) 100 mg PO DAILY [facility] Last Admin: 07/26/21 09:48 Dose: 100 mg Documented by: Magnesium Hydroxide (Magnesium Hydroxide 400 Mg/5 Ml Susp 30 Ml Cup) 30 ml PO BID PRN PRN Reason: Constipation Ondansetron HCl (Ondansetron 4 Mg/2 Ml Sdv) 4 mg IVPUSH Q6H PRN PRN Reason: Nausea/Vomiting Oxycodone HCl (Oxycodone 5 Mg Tab) 5 - 10 mg PO Q4H PRN PRN Reason: Pain (moderate 4-6) Last Admin: 07/26/21 11:01 Dose: 5 mg Documented by: Senna (Sennosides 8.6 Mg Tab) 8.6 mg PO BID PRN PRN Reason: Constipation Discontinued Medications Acetaminophen (Acetaminophen 325 Mg Tab) 975 mg PO ONETIME [facility] Stop: 07/25/21 14:00 Last Admin: 07/25/21 07:30 Dose: 975 mg Documented by: Aspirin (Aspirin 325 Mg Tab.Ec) 325 mg PO BID [facility] Cefazolin Sodium (Cefazolin 1 Gm Vial) Confirm Administered Dose 2 gm .ROUTE .STK-MED ONE Stop: 07/25/21 07:27 Morphine Sulfate 8 mg/Epinephrine HCl 0.3 mg/Cefuroxime Sodium 750 mg/Ketorolac Tromethamine 30 mg/Sodium Chloride 7.9 ml 0 mg .XX ASDIRECTED PRN PRN Reason: Pain Stop: 07/25/21 16:00 Last Admin: 07/25/21 09:20 Dose: 788.3 mg Documented by: Diltiazem HCl (Diltiazem 50 Mg/10 Ml Sdv) 20 mg IVPUSH ONETIME ONE Stop: 07/25/21 14:43 Last Admin: 07/25/21 15:00 Dose: 20 mg Documented by: Epinephrine HCl (Epinephrine 1 Mg/Ml Sdv) Confirm Administered Dose 1 mg .ROUTE .STK-MED ONE Stop: 07/25/21 07:33 Fentanyl (Fentanyl 100 Mcg/2 Ml Sdv) 50 mcg IVPUSH Q5M PRN PRN Reason: Pain Stop: 07/25/21 18:00 Last Admin: 07/25/21 10:38 Dose: 50 mcg Documented by: Hydromorphone HCl (Hydromorphone 0.5 Mg/0.5 Ml Syringe) 0.5 mg IVPUSH Q10M PRN PRN Reason: Pain (severe 7-10) Stop: 07/25/21 18:00 Lactated Ringer's (Ringers, Lactated) 1,000 mls @ 125 mls/hr IV ASDIRECTED [facility] Stop: 07/25/21 23:00 Last Admin: 07/25/21 17:32 Dose: 125 mls/hr Documented by: Lactated Ringer's (Ringers, Lactated) Confirm Administered Dose 1,000 mls @ as directed .ROUTE .STK-MED ONE Stop: 07/25/21 07:27 Cefazolin Sodium/Dextrose 2 gm (/ Premix) 50 mls @ 100 mls/hr IV Q8H [facility] Stop: 07/26/21 11:29 Last Admin: 07/26/21 11:04 Dose: 100 mls/hr Documented by: Ketorolac Tromethamine (Ketorolac 15 Mg/Ml Sdv) 15 mg IVPUSH ONETIME ONE Stop: 07/26/21 10:29 Last Admin: 07/26/21 11:05 Dose: 15 mg Documented by: Levothyroxine Sodium (Levothyroxine 100 Mcg Tab) 100 mcg PO DAILY@0700 [facility] Last Admin: 07/26/21 06:10 Dose: 100 mcg Documented by: Levothyroxine Sodium (Levothyroxine 75 Mcg Tab) 75 mcg PO DAILY@0700 [facility] Last Admin: 07/26/21 06:10 Dose: 75 mcg Documented by: Lidocaine HCl (Lidocaine 1% 5 Ml Sdv) Confirm Administered Dose 5 ml .ROUTE .STK-MED ONE Stop: 07/25/21 08:10 Lidocaine/Sodium Bicarbonate (Lidocaine 1%/Sod Bicarbonate In Ns 8.4% 1 Ml Syringe) 0.25 ml IDERM ONETIME PRN PRN Reason: Prior to IV Start Stop: 07/25/21 18:00 Metoprolol Tartrate (Metoprolol Tartrate 25 Mg Tab) 25 mg PO Q12H [facility] Last Admin: 07/25/21 17:38 Dose: Not Given Documented by: Midazolam HCl (Midazolam 1 Mg/Ml 2 Ml Sdv) Confirm Administered Dose 2 mg .ROUTE .STK-MED ONE Stop: 07/25/21 07:27 Miscellaneous Medication (Phenylephrine Hcl In 0.9% Nacl 1 Mg/10 Ml Syringe) Confirm Administered Dose 0 mg .ROUTE .STK-MED ONE Stop: 07/25/21 08:40 Ondansetron HCl (Ondansetron 4 Mg/2 Ml Sdv) 4 mg IVPUSH ONETIME PRN PRN Reason: Nausea/Vomiting Stop: 07/25/21 18:00 Last Admin: 07/25/21 10:36 Dose: 4 mg Documented by: Oxycodone HCl (Oxycodone Er 10 Mg Tab.Er) 10 mg PO ONETIME [facility] Stop: 07/25/21 14:00 Last Admin: 07/25/21 07:30 Dose: 10 mg Documented by: Oxycodone HCl (Oxycodone 5 Mg Tab) 5 - 10 mg PO Q4H PRN PRN Reason: Pain Stop: 07/25/21 16:00 Oxycodone HCl (Oxycodone 5 Mg Tab) 5 - 10 mg PO Q4H PRN PRN Reason: Pain Stop: 07/25/21 23:00 Last Admin: 07/25/21 15:25 Dose: 10 mg Documented by: Oxycodone HCl (Oxycodone 5 Mg Tab) 5 - 10 mg PO Q4H PRN PRN Reason: Pain Pregabalin (Pregabalin 25 Mg Cap) 50 mg PO ONETIME [facility] Stop: 07/25/21 14:00 Last Admin: 07/25/21 07:29 Dose: 50 mg Documented by: Propofol (Propofol 200 Mg/20 Ml Sdv) Confirm Administered Dose 400 mg .ROUTE .STK-MED ONE Stop: 07/25/21 07:27 Ropivacaine (Ropivacaine 0.5% 5 Mg/Ml 30 Ml Sdv) Confirm Administered Dose 30 ml .ROUTE .STK-MED ONE Stop: 07/25/21 07:34 Sodium Chloride (Sodium Chloride 0.9% 10 Ml Syringe) 10 ml FLUSH ASDIRECTED PRN PRN Reason: Keep Vein Open Stop: 07/25/21 18:00 Tranexamic Acid (Tranexamic Acid 1,000 Mg/10 Ml Amp) Confirm Administered Dose 1,000 mg .ROUTE .STK-MED ONE Stop: 07/25/21 07:05 Last Admin: 07/25/21 09:32 Dose: 1,000 mg Documented by: Vancomycin HCl (Vancomycin 1 Gm Sdv) Confirm Administered Dose 1 gm .ROUTE .STK- MED ONE Stop: 07/25/21 07:05 Last Admin: 07/25/21 09:32 Dose: 1 gm Documented by:
[2021-07-27] MEDS ORDERED: Levothyroxine 75 MCG Tab PO SCH (07:30)
--- NOTE | 2021-08-04 08:15 | PCM.OPNOTE ---
- General Post-Op/Procedure Note Date of Surgery/Procedure: 07/25/21 Operative Procedure(s): right total knee arthroplasty with praveen aure robotics Pre Op Diagnosis: right knee osteoarthrosis Post-Op Diagnosis: Same Anesthesia Technique: Local, MAC, Spinal Primary Surgeon: Segundo Hsieh Anesthesia Provider: Roz Bose Retail Performance Coach: Nannette Wilkerson Retail Performance Coach: Sandra Aiken in mLs: 5 Complications: None Condition: Good Free Text/Narrative:: 4 press fit 4 press fit 10mm 32x10 cemented
--- NOTE | 2021-08-05 11:23 | OR ---
DATE OF OPERATION: 07/25/2021 SURGEON: Segundo Hsieh MD OPERATION PERFORMED: Right total knee arthroplasty with Mammoth Nii robotics. PREOPERATIVE DIAGNOSIS: Right knee osteoarthrosis. POSTOPERATIVE DIAGNOSIS: Right knee osteoarthrosis. ANESTHESIA: Local MAC with spinal. ANESTHESIA PROVIDER: Roz Bose. ASSISTANTS: Nannette Wilkerson PA-C and Sandra Aiken RN. ESTIMATED BLOOD LOSS: 5 mL. COMPLICATIONS: None. CONDITION: Stable. IMPLANTS: 1. Idris size 4 press-fit CR femur. 2. Mammoth size 4 press-fit tibial baseplate. 3. Idris size 4, 10 mm CS polyethylene insert. 4. Mammoth size 32 x 10 mm cemented asymmetric patella. DESCRIPTION OF PROCEDURE: The patient was identified in the preop holding area where proper site was marked and identified by surgeon. The patient was taken back to the operating theater where after adequate anesthesia, the patient had a nonsterile tourniquet applied to the right lower extremity. Right lower extremity was then sterilely prepped and draped in usual sterile fashion. OR time-out was performed. The patient received 2 g IV Ancef. Leg delaney was applied to the right lower extremity. Right lower extremity was exsanguinated. Tourniquet was insufflated to 250 mmHg. Standard anterior incision was made, and medial parapatellar arthrotomy was created. Deep fibers of the MCL were raised, and anterior fat pad was resected. At this time, attention was turned to the patella. Patella was noted to be rather thin at 21. It was resected to a 13 for a 32 x 10 mm patella. At this time, we decided we would cement the patella secondary to the thinness nature of the patella at this time. At this time, two 4-0 Schanz pins were placed intra-incisionally on the femur and 2 more were placed down on the tibia extra-incisionally 3 fingerbreadths below the tibial tubercle for the Mammoth Nii robotic array. Checkpoints were placed on the femur and the tibia. Hip center rotation was then obtained. Medial and lateral malleoli were marked as well as the femoral and tibial checkpoints. 40 points were then obtained off the femur and the tibia for the Mammoth Nii robotic plan. At this time, 19 mm gaps in both flexion and extension were made for this patient. Saw blade was brought in. Tibial cut, anterior femoral cut, anterior chamfer cut, and posterior femoral cut were completed at this time. Saw blade was switched, and the distal femoral as well as posterior chamfer cuts were completed. All bony fragments were removed. Medial and lateral meniscus were resected. Any posterior osteophytes were removed. Size 4 trial baseplate was then placed. Size 4 trial femur was then placed, and a 9 mm trial poly was placed. The patient was noted to have a small amount of play, so a 10 mm and patient had no varus-valgus instability, full range of motion, and no signs of liftoff. At this time, femur was drilled in the proper position. Tibia stamped and drilled in proper rotation. All trial implants were removed. Size 4 press-fit tibia was then impacted into place. Size 4 femur was impacted into place, and 10 mm CS polyethylene insert was impacted into place. The patient's knee was brought into full extension. Cement had been mixed at the back table. The patella was irrigated and then completely dried, and then the 32 x 10 mm cemented patella was cemented into place. 1 L of pulse lavage irrigation with Ancef was irrigated through the knee along with 400 mL IrriSept irrigation. Topical tranexamic acid and vancomycin powder were applied. Periarticular injection was completed. The Roundtable robotic array and checkpoints were removed. A #2 barbed suture was used for closure of the medial parapatellar arthrotomy. 2-0 Vicryl and Stratafix were used for subcutaneous closure and Prineo was used for skin closure. The patient tolerated the procedure well and sent to PACU in stable condition. MMODAL /[id number]
== END 2021-07-26 02:14 | disposition home or self-care (01) ==
LOC: JD.SDS 06:50 → JD.MS 17:27
PROVIDERS: ADMIT Orthopaedic Surgery; ATTEND Orthopaedic Surgery
DX: M17.11 Unilateral primary osteoarthritis, right knee (principal); E11.9 Type 2 diabetes mellitus without complications; E78.2 Mixed hyperlipidemia; M81.0 Age-related osteoporosis without current pathological fracture; E03.9 Hypothyroidism, unspecified; Z79.84 Long term (current) use of oral hypoglycemic drugs; Z98.890 Other specified postprocedural states; I48.91 Unspecified atrial fibrillation; Z79.899 Other long term (current) drug therapy; Z87.891 Personal history of nicotine dependence
CPT/HCPCS: 27447; 36415; 73560; 80053; 82947; 84443; 85025; 93306; 94760; 96365; 96366; 96375; 97116; 97161; A9270; C1713; C1776; G0378; J0171; J0690; J0697; J1815; J1885; J2250; J2270; J2405; J2704; J2795; J3010; J3370; J3490; J7120; 01402; 64450; 76942; 99100; J2370

== ENCOUNTER 2023-03-13 14:01 | Emergency (ER) | payer MEDICARE, BC ==
[2023-03-13 14:11] VITALS: BP 171/95; PULSE 94
[2023-03-13 15:16] LABS: ESTIMATED GFR 51 mL/min (>60)
== END 2023-03-13 15:44 | disposition home or self-care (01) ==
LOC: JD.ED 14:01
DX: L03.113 Cellulitis of right upper limb (principal); I10 Essential (primary) hypertension; E11.9 Type 2 diabetes mellitus without complications; E03.9 Hypothyroidism, unspecified; M19.90 Unspecified osteoarthritis, unspecified site; Z79.899 Other long term (current) drug therapy; Z79.84 Long term (current) use of oral hypoglycemic drugs; Z79.01 Long term (current) use of anticoagulants
CPT/HCPCS: 36415; 80053; 82947; 85025; 86140; 99284